=== PATIENT | female | born 1945 | race Caucasian/White ===

== ENCOUNTER 2017-09-06 11:37 | Inpatient (IN) | payer MEDICARE ==
[2017-09-06] MEDS ORDERED: Furosemide 40 MG/4 ML VIAL IVPUSH ONE ×2 (11:47→11:55)
[2017-09-06] MEDS ORDERED: Sodium Chloride 0.9% 10 ML Syringe FLUSH PRN (11:47)
--- NOTE | 2017-09-06 12:11 | EDM.PDOC ---
ED HPI GENERAL MEDICAL PROBLEM - General Chief Complaint: Respiratory Problem Stated Complaint: [facility] Time Seen by Provider: 09/06/17 11:45 Source of Information: Reports: Patient, EMS, Family History Limitations: Reports: Physical Impairment, Respiratory Distress - History of Present Illness INITIAL COMMENTS - FREE TEXT/NARRATIVE: 71-year-old female with a known history of COPD and congestive heart failure is developed significant shortness of breath overnight. She has had moderate shortness of breath over the past several days, and also increasing peripheral edema. EMS was called and found her tripoding at home, acute respiratory distress and unable to speak. This started O2 and gave her a nebulizer in route. Also started CPAP. On arrival her O2 saturations had reached the low 90s on 10 L of O2 with CPAP. She was able to start speaking with a few words. She denies any pain, she refuses intubation. This is a very similar episode to her presentation 2 years ago when she was in acute congestive heart failure. She denies pain. Onset: Sudden (Symptoms developed rather suddenly overnight) Severity: Severe Associated Symptoms: Denies: Fever/Chills Treatments CORE WINDER: Reports: IV/IO, Other (see below) Other Treatments CORE WINDER: Cpap Denies Pain Score (Numeric/FACES): 0 - Related Data Allergies Allergy/AdvReac Type Severity Reaction Status Date / Time No Known Allergies Allergy Verified 09/06/17 12:04 Home Meds: Home Meds Levothyroxine 75 mcg PO DAILY 12/06/13 [History] atorvaSTATin [Lipitor] 20 mg PO BEDTIME 12/06/13 [History] Aspirin [Adult Low Dose Aspirin EC] 81 mg PO DAILY 09/06/17 [History] Budesonide [Pulmicort] 0.5 mg IH BID 09/06/17 [History] Furosemide 1 tab PO DAILY 09/06/17 [History] Ipratropium/Albuterol Sulfate [Iprat-Albut 0.5-3(2.5) mg/3 ml] 3 ml IH QID 09/06 [History] Metoprolol Tartrate 12.5 mg PO BID 09/06/17 [History] Potassium Chloride 20 meq PO DAILY 09/06/17 [History] Past Medical History Respiratory History: Reports: Asthma, COPD, SOB Genitourinary History: Reports: Urinary Incontinence Endocrine/Metabolic History: Reports: Hyperthyroidism Dermatologic History: Reports: Eczema, Other (See Below) Other Dermatologic History: dry skin - itches alot - Infectious Disease History Infectious Disease History: Reports: Chicken Pox, Shingles Social & Family History - Family History Cardiac: Reports: Heart Failure Respiratory: Reports: COPD Endocrine/Metabolic: Reports: Diabetes, type II ED ROS GENERAL - Review of Systems Review Of Systems: See Below Constitutional: Denies: Fever Respiratory: Reports: Shortness of Breath, Cough Cardiovascular: Reports: Edema (Lower extremity edema has been worse recently). Denies: Chest Pain GI/Abdominal: Denies: Nausea, Vomiting Neurological: Denies: Headache ED EXAM, GENERAL - Physical Exam Exam: See Below Exam Limited By: Respiratory Distress General Appearance: Alert, Moderate Distress Eye Exam: Bilateral Eye: EOMI Respiratory/Chest: Respiratory Distress, Decreased Breath Sounds, Rales Cardiovascular: Regular Rate, Rhythm GI/Abdominal: Soft, Non-Tender Extremities: Pedal Edema (Patient has significant 2+ symmetric lower extremity edema) Neurological: Alert Skin Exam: Warm, Dry Course - Vital Signs Last Recorded V/S: Last Vital Signs Temp 98.4 F 09/06/17 15:00 Pulse 107 H 09/06/17 16:00 Resp 17 09/06/17 16:00 BP 88/49 L 09/06/17 16:00 Pulse Ox 91 L 09/06/17 16:00 - Orders/Labs/Meds Orders: Active Orders 24 hr Category Date Time Status Ang Chest [CT] Stat Exams 09/06/17 12:31 Taken Chest 1V Frontal [CR] Stat Exams 09/06/17 11:45 Taken Sodium Chloride 0.9% [Saline Flush] Med 09/06/17 11:47 Active 10 ml FLUSH ASDIRECTED PRN Saline Lock Insert [OM.PC] Routine Oth 09/06/17 11:47 Ordered Medication Orders Acetaminophen (Tylenol) 650 mg PO Q4H PRN PRN Reason: Pain (Mild 1-3)/fever Albuterol (Proventil Neb Soln) 2.5 mg NEB Q4H PRN PRN Reason: Shortness Of Breath/wheezing Albuterol/Ipratropium (Duoneb 3.0-0.5 Mg/3 Ml) 3 ml NEB QIDRT [facility] [place] Last Admin: 09/06/17 14:18 Dose: 3 ml Aspirin (Halfprin) 81 mg PO DAILY [facility] [place] Atorvastatin Calcium (Lipitor) 20 mg PO BEDTIME [facility] [place] Budesonide (Pulmicort) 0.5 mg INH BIDRT [facility] [place] Sodium Chloride (Normal Saline) 100 mls @ 3 mls/sec IV ASDIRECTED [facility] [place] Last Admin: 09/06/17 13:35 Dose: 3 mls/sec Ceftriaxone Sodium 2 gm/ (Sodium Chloride) 50 mls @ 100 mls/hr IV Q24H [facility] [place] Last Admin: 09/06/17 14:16 Dose: 100 mls/hr Levofloxacin/Dextrose 750 mg/ (Premix) 150 mls @ 100 mls/hr IV Q24H [facility] [place] Last Admin: 09/06/17 14:47 Dose: 100 mls/hr Iopamidol (Isovue-370 (76%)) 100 ml IV . DIRECTED [facility] [place] Last Admin: 09/06/17 13:35 Dose: 100 ml Levothyroxine Sodium (Levothyroxine) 75 mcg PO ACBREAKFAST [facility] [place] Lorazepam (Ativan) 0.5 - 1 mg IVPUSH Q4H PRN PRN Reason: Anxiety Magnesium Hydroxide (Milk Of Magnesia) 30 ml PO Q12H PRN PRN Reason: Constipation Metoprolol Tartrate (Lopressor) 12.5 mg PO BID [facility] [place] Morphine Sulfate (Morphine) 2 mg IVPUSH Q2H PRN PRN Reason: Pain (severe 7-10) Ondansetron HCl (Zofran Odt) 4 mg PO Q6H PRN PRN Reason: Nausea able to take PO Ondansetron HCl (Zofran) 4 mg IV Q6H PRN PRN Reason: Nausea/Vomiting Polyethylene Glycol (Miralax) 17 gm PO DAILY PRN PRN Reason: Constipation Senna/Docusate Sodium (Senna Plus) 1 tab PO BID PRN PRN Reason: Constipation Sodium Chloride (Saline Flush) 10 ml FLUSH ASDIRECTED PRN PRN Reason: Keep Vein Open Last Admin: 09/06/17 12:11 Dose: 10 ml Sodium Chloride (Numidia Nasal [place]) 1 ml ROBYN Q2H PRN PRN Reason: Dryness Labs: Laboratory Tests 09/06/17 09/06/17 09/06/17 Range/Units 11:45 11:45 12:00 WBC 11.5 H (4.5-11.0) K/uL RBC 3.99 (3.30-5.50) M/uL Hgb 12.1 (12.0-15.0) g/dL Hct 37.7 (36.0-48.0) % MCV 95 (80-98) fL MCH 30 (27-31) pg MCHC 32 (32-36) % Plt Count 389 (150-400) K/uL Neut % (Auto) 79 H (36-66) % Lymph % (Auto) 13 L (24-44) % [place] % (Auto) 8 H (2-6) % Eos % (Auto) 0 L (2-4) % Baso % (Auto) 0 (0-1) % Puncture Site Lt radial ABG pH 7.500 H (7.350-7.450) ABG pCO2 44.3 H (35.0-42.0) mmHg ABG pO2 46.1 L (75.0-100.0) mmHg ABG HCO3 34.2 H (22.0-26.0) mmol/L ABG Total CO2 30.4 H (21.0-25.0) mmol/L ABG O2 Saturation 82.1 L (95.0-98.0) % ABG O2 Content 13.5 L (15.0-23.0) %vol ABG Base Excess 10.0 mm/L ABG Hemoglobin 12.0 (12.0-16.0) g/dL ABG Oxyhemoglobin 80.0 % ABG Carboxyhemoglobin 2.1 H (0.0-1.6) % ABG Methemoglobin 0.4 % Ken Test Passed O2 Delivery Device Bipap Oxygen Flow Rate 10 L Sodium 130 L (140-148) mmol/L Potassium 4.5 (3.6-5.2) mmol/L Chloride 91 L (100-108) mmol/L Carbon Dioxide 35 H (21-32) mmol/L Anion Gap 8.5 (5.0-14.0) mmol/L BUN 12 (7-18) mg/dL Creatinine 0.6 (0.6-1.0) mg/dL Est Cr Clr Drug Dosing TNP Estimated GFR (MDRD) > 60 (>60) Glucose 129 H (74-106) mg/dL Calcium 8.7 (8.5-10.1) mg/dL Meds: Medications Generic Name Dose Route Start Last Admin Trade Name Freq PRN Reason Stop Dose Admin Acetaminophen 650 mg 09/06/17 13:35 Tylenol PO Q4H PRN Pain (Mild 1-3)/fever Albuterol 2.5 mg 09/06/17 13:35 Proventil Neb Soln NEB Q4H PRN Shortness Of Breath/wheezing Albuterol/Ipratropium 3 ml 09/06/17 15:00 09/06/17 14:18 Duoneb 3.0-0.5 Mg/3 Ml NEB 3 ml QIDRT GURJIT Administration Aspirin 81 mg 09/07/17 09:00 Halfprin PO DAILY GURJIT Atorvastatin Calcium 20 mg 09/06/17 21:00 Lipitor PO BEDTIME GURJIT Budesonide 0.5 mg 09/06/17 21:00 Pulmicort INH BIDRT GURJIT Sodium Chloride 100 mls @ 3 mls/sec 09/06/17 13:00 09/06/17 13:35 Normal Saline IV 3 mls/sec ASDIRECTED GURJIT Administration Ceftriaxone Sodium 2 gm/ 50 mls @ 100 mls/hr 09/06/17 14:00 09/06/17 14:16 Sodium Chloride IV 100 mls/hr Q24H GURJIT Administration Levofloxacin/Dextrose 750 mg/ 150 mls @ 100 mls/hr 09/06/17 15:00 09/06/17 14 :47 Premix IV 100 mls/hr Q24H GURJIT Administration Iopamidol 100 ml 09/06/17 13:00 09/06/17 13:35 Isovue-370 (76%) IV 100 ml . DIRECTED GURJIT Administration Levothyroxine Sodium 75 mcg 09/07/17 07:30 Levothyroxine PO ACBREAKFAST GURJIT Lorazepam 0.5 - 1 mg 09/06/17 13:35 Ativan IVPUSH Q4H PRN Anxiety Magnesium Hydroxide 30 ml 09/06/17 13:35 Milk Of Magnesia PO Q12H PRN Constipation Metoprolol Tartrate 12.5 mg 09/06/17 21:00 Lopressor PO BID GURJIT Morphine Sulfate 2 mg 09/06/17 13:35 Morphine IVPUSH Q2H PRN Pain (severe 7-10) Ondansetron HCl 4 mg 09/06/17 13:35 Zofran Odt PO Q6H PRN Nausea able to take PO Ondansetron HCl 4 mg 09/06/17 13:35 Zofran IV Q6H PRN Nausea/Vomiting Polyethylene Glycol 17 gm 09/06/17 13:35 Miralax PO DAILY PRN Constipation Senna/Docusate Sodium 1 tab 09/06/17 13:35 Senna Plus PO BID PRN Constipation Sodium Chloride 10 ml 09/06/17 11:47 09/06/17 12:11 Saline Flush FLUSH 10 ml ASDIRECTED PRN Administration Keep Vein Open Sodium Chloride 1 ml 09/06/17 13:46 Numidia Nasal [place] ROBYN Q2H PRN Dryness Discontinued Medications Generic Name Dose Route Start Last Admin Trade Name Freq PRN Reason Stop Dose Admin Furosemide 80 mg 09/06/17 11:55 09/06/17 12:06 Lasix IVPUSH 09/06/17 11:56 80 mg ONETIME ONE Administration - Re-Assessments/Exams Free Text/Narrative Re-Assessment/Exam: 09/06/17 12:11 Saline lock was started, patient was given 80 mg of IV Lasix and a portable chest x-ray was obtained. This confirmed cardiomegaly with basilar basilar congestion and pleural effusions. There are also now appears to be a spiculated lesion in the left upper lung. CPAP was continued, RT was called in to initiate BiPAP in the hospitalist service was consulted for admission for acute exacerbation of chronic COPD and CHF. Blood gases returned somewhat reassuring with a pH of 7.50, however O2 saturation was only 82%. Departure - Departure Time of Disposition: 13:37 Disposition: Admitted As Inpatient 66 Condition: Poor Clinical Impression: COPD with exacerbation Congestive heart failure Qualifiers: Heart failure type: unspecified Heart failure chronicity: chronic Qualified Code(s): I50.9 - Heart failure, unspecified - Discharge Information - My Orders Last 24 Hours: My Active Orders 09/06/17 11:45 Chest 1V Frontal [CR] Stat 09/06/17 11:47 Sodium Chloride 0.9% [Saline Flush] 10 ml FLUSH ASDIRECTED PRN Saline Lock Insert [OM.PC] Routine - Assessment/Plan Last 24 Hours: My Active Orders 09/06/17 11:45 Chest 1V Frontal [CR] Stat 09/06/17 11:47 Sodium Chloride 0.9% [Saline Flush] 10 ml FLUSH ASDIRECTED PRN Saline Lock Insert [OM.PC] Routine
--- NOTE | 2017-09-06 12:42 | PCM.HP ---
H&P History of Present Illness - General Date of Service: 09/06/17 Admit Problem/Dx: Admission Diagnosis/Problem Admission Diagnosis/Problem Cor pulmonale Source of Information: Patient, Family, Provider History Limitations: Reports: Respiratory Distress - History of Present Illness Initial Comments - Free Text/Narative: Vanessa presented to the emergency room by ambulance with 3-4 days of progressive shortness of breath and cough. She is currently on noninvasive ventilation and suffering from some respiratory distress so history is gathered partially from her and partially from her . She reports onset of symptoms approximately 4 days ago with steady progression over that time including increasing shortness of breath and increasing cough with green sputum. She is now short of breath even at rest and severely so this morning when she called the ambulance. She doesn't think she's been having fevers or chills. She does not report any chest pain or pleuritic chest pain. No recent difficulties with abdominal pain nausea or diarrhea but she does have some mild constipation. No recent antibiotics or steroids. No sick contacts. She has noticed that her lower legs have suddenly become quite swollen over the past 2 days. She is not have orthopnea. Upon arrival to the emergency room she is in respiratory distress and was quickly started on Cipro Which was transitioned to noninvasive ventilation. She has mild leukocytosis. ABGs show a slight alkalosis with very mild elevation of her PCO2. Chest x-ray suggested pulmonary edema and possible upper lobe mass or infiltrate. CT scan of the chest did not reveal evidence for pulmonary embolism but did show left upper lobe pneumonia and moderately severe centrilobular emphysema. She'll be admitted to the intensive care unit for further management. Denies Pain Score (Numeric/FACES): 0 - Related Data Allergies/Adverse Reactions: Allergies Allergy/AdvReac Type Severity Reaction Status Date / Time No Known Allergies Allergy Verified 09/06/17 12:04 Home Medications: Home Meds Levothyroxine 75 mcg PO DAILY 12/06/13 [History] atorvaSTATin [Lipitor] 20 mg PO BEDTIME 12/06/13 [History] Aspirin [Adult Low Dose Aspirin EC] 81 mg PO DAILY 09/06/17 [History] Budesonide [Pulmicort] 0.5 mg IH BID 09/06/17 [History] Furosemide 1 tab PO DAILY 09/06/17 [History] Ipratropium/Albuterol Sulfate [Iprat-Albut 0.5-3(2.5) mg/3 ml] 3 ml IH QID 09/06 [History] Metoprolol Tartrate 12.5 mg PO BID 09/06/17 [History] Potassium Chloride 20 meq PO DAILY 09/06/17 [History] Past Medical History HEENT History: Reports: Impaired Vision Cardiovascular History: Reports: Heart Failure Respiratory History: Reports: Asthma, COPD, SOB Genitourinary History: Reports: Urinary Incontinence 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: Psychiatric History: Reports: Depression Endocrine/Metabolic History: Reports: Hyperthyroidism Dermatologic History: Reports: Eczema, Other (See Below) Other Dermatologic History: dry skin - itches alot - Infectious Disease History Infectious Disease History: Reports: Chicken Pox, Shingles - Past Surgical History GI Surgical History: Reports: Cholecystectomy Female Surgical History: Reports: Hysterectomy, Oophorectomy, Salpingo- Oophorectomy, Other (See Below) Other Female Surgeries/Procedures: only has l ovary Social & Family History - Family History Cardiac: Reports: Heart Failure Respiratory: Reports: COPD Endocrine/Metabolic: Reports: Diabetes, type II - Tobacco Use Smoking Status *Q: Former Smoker Years of Tobacco use: 50 Packs/Tins Daily: 1 Used Tobacco, but Quit: Yes Month/Year Tobacco Last Used: 2013 Second Hand Smoke Exposure: No - Alcohol Use Alcohol Use History: No - Recreational Drug Use Recreational Drug Use: No H&P Review of Systems - Review of Systems: Review Of Systems: See Below Free Text/Narrative: A complete 12 point review of systems was obtained. Pertinent positives and negatives are noted in the history of present illness. All other systems were reviewed and were negative except as noted. Exam - Exam Exam: See Below - Vital Signs Vital Signs: Last Vital Signs Temp 36.2 C 09/06/17 12:09 Pulse 72 09/06/17 12:09 Resp 22 H 09/06/17 12:09 BP 112/79 09/06/17 12:09 Pulse Ox 72 L 09/06/17 12:09 Weight: 503.488 kg - Exam Quality Assessment: Supplemental Oxygen General: Alert, Oriented, Cooperative, Moderate Distress HEENT: Conjunctiva Clear. No: Mucosa Moist & [place] (dry), Scleral Icterus Neck: Supple, Trachea Midline, JVD. No: Lymphadenopathy Lungs: Decreased Breath Sounds (diffusely ), Crackles (mild at bases). No: Normal Respiratory Effort (increased work of breathing ), Wheezing Cardiovascular: Regular Rhythm, Tachycardia, Systolic Murmur, Gallop/S3 GI/Abdominal Exam: Normal Bowel Sounds, Soft, Non-Tender, No Distention Back Exam: Normal Inspection, Full Range of Motion Extremities: Pedal Edema (pitting edema to the knee bilaterally ), Increased Warmth, Other (both calf muscles ttp ) Peripheral Pulses: 1+: Dorsalis Pedis (L), Dorsalis Pedis (R) Skin: Warm, Dry. No: Rash Neuro Extensive - Mental Status: Alert, Oriented x3, Nl Response to Commands Neuro Extensive - Motor, Sensory, Reflexes: CN II-XII Intact. No: Abnormal Reflexes, Abnormal Motor, Tremor Psychiatric: Alert, Normal Affect - Patient Data Lab Results Last 24 hrs: Laboratory Results - last 24 hr 09/06/17 09/06/17 09/06/17 Range/Units 11:45 11:45 12:00 WBC 11.5 H (4.5-11.0) K/uL RBC 3.99 (3.30-5.50) M/uL Hgb 12.1 (12.0-15.0) g/dL Hct 37.7 (36.0-48.0) % MCV 95 (80-98) fL MCH 30 (27-31) pg MCHC 32 (32-36) % Plt Count 389 (150-400) K/uL Neut % (Auto) 79 H (36-66) % Lymph % (Auto) 13 L (24-44) % [place] % (Auto) 8 H (2-6) % Eos % (Auto) 0 L (2-4) % Baso % (Auto) 0 (0-1) % Puncture Site Lt radial ABG pH 7.500 H (7.350-7.450) ABG pCO2 44.3 H (35.0-42.0) mmHg ABG pO2 46.1 L (75.0-100.0) mmHg ABG HCO3 34.2 H (22.0-26.0) mmol/L ABG Total CO2 30.4 H (21.0-25.0) mmol/L ABG O2 Saturation 82.1 L (95.0-98.0) % ABG O2 Content 13.5 L (15.0-23.0) %vol ABG Base Excess 10.0 mm/L ABG Hemoglobin 12.0 (12.0-16.0) g/dL ABG Oxyhemoglobin 80.0 % ABG Carboxyhemoglobin 2.1 H (0.0-1.6) % ABG Methemoglobin 0.4 % Ken Test Passed O2 Delivery Device Bipap Oxygen Flow Rate 10 L Sodium 130 L (140-148) mmol/L Potassium 4.5 (3.6-5.2) mmol/L Chloride 91 L (100-108) mmol/L Carbon Dioxide 35 H (21-32) mmol/L Anion Gap 8.5 (5.0-14.0) mmol/L BUN 12 (7-18) mg/dL Creatinine 0.6 (0.6-1.0) mg/dL Est Cr Clr Drug Dosing TNP Estimated GFR (MDRD) > 60 (>60) Glucose 129 H (74-106) mg/dL Calcium 8.7 (8.5-10.1) mg/dL Result Diagrams: 09/06/17 11:45 09/06/17 12:00 Imaging Impressions Last 24 hrs: CXR - images personally reviewed - cardiomegally, diffuse bilateral interstitial changes in the bases and pulm vasc congestion. Possible infiltrate versus spiculated mass left upper chest. Bilateral effusions. CT pulmonary angiogram - images personally reviewed - no evidence for pulmonary embolism. Masslike consolidation left upper lobe with air bronchograms most likely pneumonia. Severe emphysema. *Q Meaningful Use (ADM) - VTE Risk Assess *Q Each Risk Factor Represents 1 Point: Swollen Legs, Current, Congestive heart failure (CHF), Serious lung disease including pneumonia, Abnormal Pulmonary Function (COPD) Total Score 1 Point Risk Factors: 4 Each Risk Factor Represents 2 Points: Age 60 - 74 Years Total Score 2 Point Risk Factors: 2 Each Risk Factor Represents 3 Points: None Total Score 3 Point Risk Factors: 0 Each Risk Factor Represents 5 Points: None Total Score 5 Point Risk Factors: 0 Venous Thromboembolism Risk Factor Score *Q: 6 - Problem List (1) Cor pulmonale SNOMED Code(s): 40049406 ICD Code: I27.81 - COR PULMONALE (CHRONIC) Status: Acute Current Visit: Yes (2) Heart failure, diastolic, with acute decompensation SNOMED Code(s): 811226515 ICD Code: I50.33 - ACUTE ON CHRONIC DIASTOLIC (CONGESTIVE) HEART FAILURE Status: Acute Current Visit: Yes (3) Left upper lobe pneumonia SNOMED Code(s): 541793270 ICD Code: J18.1 - LOBAR PNEUMONIA, UNSPECIFIED ORGANISM Status: Acute Current Visit: Yes Qualifiers: Pneumonia type: due to unspecified organism Qualified Code(s): J18.1 - Lobar pneumonia, unspecified organism (4) Lung nodule, solitary SNOMED Code(s): 326263744 ICD Code: R91.1 - SOLITARY PULMONARY NODULE Status: Chronic Current Visit : Yes Problem Details: Right upper lobe Problem List Initiated/Reviewed/Updated: Yes Orders Last 24hrs: Active Orders 24 hr Category Date Time Status Patient Status Manage Transfer [TRANSFER] Routine ADT 09/06/17 12:33 Ordered Ang Chest [CT] Stat Exams 09/06/17 12:31 Ordered Chest 1V Frontal [CR] Stat Exams 09/06/17 11:45 Taken Sodium Chloride 0.9% [Saline Flush] Med 09/06/17 11:47 Active 10 ml FLUSH ASDIRECTED PRN Saline Lock Insert [OM.PC] Routine Oth 09/06/17 11:47 Ordered Resuscitation Status Routine Resus Stat 09/06/17 12:34 Ordered Medication Orders Sodium Chloride (Saline Flush) 10 ml FLUSH ASDIRECTED PRN PRN Reason: Keep Vein Open Last Admin: 09/06/17 12:11 Dose: 10 ml Assessment/Plan Comment:: ASSESSMENT AND PLAN - Cor pulmonale with acute hypoxic respiratory failure - significant pulmonary edema noted on chest x-ray and patient has obvious evidence for congestive heart failure. Bedside ultrasound shows severely dilated and poorly functioning right ventricle and hyperdynamic left ventricle. IVC was dilated and did not collapse. Patient has severe emphysema noted on CAT scan but no evidence for pulmonary embolism. Left upper lobe pneumonia likely contributing. -Patient received 80 mg of furosemide in the emergency room, reassess volume status later this afternoon -Noninvasive ventilation as needed -Newsome catheter -Scheduled and as needed nebulizers Left upper lobe pneumonia - mass versus infiltrate noted on chest x-ray and consolidation with air bronchograms noted on CT scan. She has had recent green sputum along with her progressive shortness of breath but no fevers. -Levofloxacin and ceftriaxone -Additional management as above -Sputum culture if able History of tobacco dependence - quit about 4 years ago. Maintenance issues - - DVT prophylaxis - JUSTINO stockings - GI prophylaxis - not indicated - Nutrition - clear liquids, advance as tolerated - Newsome catheter - placed in the emergency room for strict intake and output monitoring in the setting of severe respiratory compromise CODE STATUS - patient is agreeable to CPR but does not want intubation. Admission justification - This patient will be admitted for inpatient services and is medically appropriate meeting medical necessity for inpatient admission as outlined in my documentation. I reasonably expect the patient will require inpatient services that span a period time over 2 midnights. I reasonably expect this patient to be discharged or transferred within 96 hours after admission to the [facility]. Disposition - anticipate discharge home after the hospital stay Primary care physician - Dr. Augustine Andrade M.D.
[2017-09-06] MEDS ORDERED: Iopamidol 755 Mg/ML 100 ML Bottle IV SCH (13:00)
[2017-09-06] MEDS ORDERED: Sodium Chloride 0.9% 100 ML IV SCH (13:00)
[2017-09-06] MEDS ORDERED: Ondansetron 4 MG Tab.DIS PO PRN (13:35)
[2017-09-06] MEDS ORDERED: Ondansetron 4 MG/2 ML SDV IV PRN (13:35)
[2017-09-06] MEDS ORDERED: Magnesium Hydroxide 400 MG/5 ML Susp 30 ML Cup PO PRN (13:35)
[2017-09-06] MEDS ORDERED: Acetaminophen 325 MG Tab PO PRN (13:35)
[2017-09-06] MEDS ORDERED: Morphine 2 MG/ML Syringe IVPUSH PRN (13:35)
[2017-09-06] MEDS ORDERED: Polyethylene Glycol 3350 Powder 17 GM Packet PO PRN (13:35)
[2017-09-06] MEDS ORDERED: Albuterol 0.083% 2.5 MG/3 ML Neb Soln NEB PRN (13:35)
[2017-09-06] MEDS ORDERED: Sodium Chloride 0.65% Nasal Spray 45 ML Bottle NAS PRN (13:46)
[2017-09-06] MEDS: cefTRIAXone 2 GM in Sodium Chloride 0.9% 50 ML IV SCH (14:16)
[2017-09-06] MEDS: Albuterol/Ipratropium 3.0-0.5 MG/3 ML Neb Soln NEB SCH ×2 (14:18→20:35)
[2017-09-06] MEDS: Levofloxacin/Dextrose 5%-Water 750 MG in Premix Bag 1 BAG IV SCH (14:47)
[2017-09-06] MEDS: Budesonide 0.5 MG/2 ML Neb Susp INH SCH (20:35)
[2017-09-06] MEDS: Metoprolol Tartrate 25 MG Tab PO SCH (21:06)
[2017-09-06] MEDS: atorvaSTATin 20 MG Tab PO SCH (21:06)
[2017-09-06] MEDS ORDERED: Sodium Chloride 0.9% 500 ML IV ONE (22:12)
[2017-09-06] MEDS: LORazepam 2 MG/ML SDV IVPUSH PRN (23:19)
[2017-09-07] MEDS: Albuterol/Ipratropium 3.0-0.5 MG/3 ML Neb Soln NEB SCH ×4 (07:16→20:36)
[2017-09-07] MEDS: Budesonide 0.5 MG/2 ML Neb Susp INH SCH ×2 (07:16→20:36)
[2017-09-07] MEDS: Levothyroxine 75 MCG Tab PO SCH (07:46)
[2017-09-07] MEDS: Aspirin 81 MG Tab.EC PO SCH (08:32)
[2017-09-07] MEDS: Metoprolol Tartrate 25 MG Tab PO SCH ×2 (08:32→20:37)
--- NOTE | 2017-09-07 10:37 | PCM.PN ---
- General Info Date of Service: 09/07/17 Subjective Update: This patient is a 71-year-old woman who was admitted through the emergency department yesterday with COPD exacerbation secondary to pneumonia. She has had significant respiratory compromise and has required ongoing use of noninvasive positive pressure ventilation. She had significant peripheral edema secondary to cor pulmonale and has had a good diuresis thus far. Shortness of breath is improved modestly since admission. - Review of Systems General: Reports: Weakness, Fatigue. Denies: Fever, Chills Pulmonary: Reports: Shortness of Breath, Cough. Denies: Sputum, Hemoptysis, Wheezing Cardiovascular: Reports: Dyspnea on Exertion, Edema. Denies: Chest Pain, Palpitations, Orthopnea, PND, Lightheadedness Gastrointestinal: Reports: No Symptoms - Patient Data Vitals - Most Recent: Last Vital Signs Temp 99 F 09/07/17 07:00 Pulse 117 H 09/07/17 08:32 Resp 22 H 09/07/17 07:00 BP 92/54 L 09/07/17 08:32 Pulse Ox 96 09/07/17 07:00 Weight - Most Recent: 120 lb 6.4 oz I&O - Last 24 Hours: Intake & Output 09/06/17 09/07/17 09/07/17 22:59 06:59 14:59 Intake Total 740 Output Total 1325 175 Balance -585 -175 Lab Results Last 24 Hours: Laboratory Results - last 24 hr 09/06/17 09/06/17 09/06/17 Range/Units 11:45 11:45 12:00 WBC 11.5 H (4.5-11.0) K/uL RBC 3.99 (3.30-5.50) M/uL Hgb 12.1 (12.0-15.0) g/dL Hct 37.7 (36.0-48.0) % MCV 95 (80-98) fL MCH 30 (27-31) pg MCHC 32 (32-36) % Plt Count 389 (150-400) K/uL Neut % (Auto) 79 H (36-66) % Lymph % (Auto) 13 L (24-44) % [place]arrard % (Auto) 8 H (2-6) % Eos % (Auto) 0 L (2-4) % Baso % (Auto) 0 (0-1) % Puncture Site Lt radial ABG pH 7.500 H (7.350-7.450) ABG pCO2 44.3 H (35.0-42.0) mmHg ABG pO2 46.1 L (75.0-100.0) mmHg ABG HCO3 34.2 H (22.0-26.0) mmol/L ABG Total CO2 30.4 H (21.0-25.0) mmol/L ABG O2 Saturation 82.1 L (95.0-98.0) % ABG O2 Content 13.5 L (15.0-23.0) %vol ABG Base Excess 10.0 mm/L ABG Hemoglobin 12.0 (12.0-16.0) g/dL ABG Oxyhemoglobin 80.0 % ABG Carboxyhemoglobin 2.1 H (0.0-1.6) % ABG Methemoglobin 0.4 % Ken Test Passed O2 Delivery Device Bipap Oxygen Flow Rate 10 L Sodium 130 L (140-148) mmol/L Potassium 4.5 (3.6-5.2) mmol/L Chloride 91 L (100-108) mmol/L Carbon Dioxide 35 H (21-32) mmol/L Anion Gap 8.5 (5.0-14.0) mmol/L BUN 12 (7-18) mg/dL Creatinine 0.6 (0.6-1.0) mg/dL Est Cr Clr Drug Dosing TNP Estimated GFR (MDRD) > 60 (>60) Glucose 129 H (74-106) mg/dL Calcium 8.7 (8.5-10.1) mg/dL Magnesium (1.8-2.4) mg/dL C-Reactive Protein (0.0-0.3) mg/dL 09/06/17 09/06/17 09/07/17 Range/Units 13:35 13:46 05:11 WBC 9.5 (4.5-11.0) K/uL RBC 4.02 (3.30-5.50) M/uL Hgb 12.2 (12.0-15.0) g/dL Hct 39.5 (36.0-48.0) % MCV 98 (80-98) fL MCH 30 (27-31) pg MCHC 31 L (32-36) % Plt Count 336 (150-400) K/uL Neut % (Auto) (36-66) % Lymph % (Auto) (24-44) % Garrard % (Auto) (2-6) % Eos % (Auto) (2-4) % Baso % (Auto) (0-1) % Puncture Site ABG pH (7.350-7.450) ABG pCO2 (35.0-42.0) mmHg ABG pO2 (75.0-100.0) mmHg ABG HCO3 (22.0-26.0) mmol/L ABG Total CO2 (21.0-25.0) mmol/L ABG O2 Saturation (95.0-98.0) % ABG O2 Content (15.0-23.0) %vol ABG Base Excess mm/L ABG Hemoglobin (12.0-16.0) g/dL ABG Oxyhemoglobin % ABG Carboxyhemoglobin (0.0-1.6) % ABG Methemoglobin % Ken Test O2 Delivery Device Oxygen Flow Rate L Sodium (140-148) mmol/L Potassium (3.6-5.2) mmol/L Chloride (100-108) mmol/L Carbon Dioxide (21-32) mmol/L Anion Gap (5.0-14.0) mmol/L BUN (7-18) mg/dL Creatinine (0.6-1.0) mg/dL Est Cr Clr Drug Dosing Estimated GFR (MDRD) (>60) Glucose (74-106) mg/dL Calcium (8.5-10.1) mg/dL Magnesium 1.8 (1.8-2.4) mg/dL C-Reactive Protein 2.67 H (0.0-0.3) mg/dL 09/07/17 Range/Units 05:50 WBC (4.5-11.0) K/uL RBC (3.30-5.50) M/uL Hgb (12.0-15.0) g/dL Hct (36.0-48.0) % MCV (80-98) fL MCH (27-31) pg MCHC (32-36) % Plt Count (150-400) K/uL Neut % (Auto) (36-66) % Lymph % (Auto) (24-44) % Garrard % (Auto) (2-6) % Eos % (Auto) (2-4) % Baso % (Auto) (0-1) % Puncture Site ABG pH (7.350-7.450) ABG pCO2 (35.0-42.0) mmHg ABG pO2 (75.0-100.0) mmHg ABG HCO3 (22.0-26.0) mmol/L ABG Total CO2 (21.0-25.0) mmol/L ABG O2 Saturation (95.0-98.0) % ABG O2 Content (15.0-23.0) %vol ABG Base Excess mm/L ABG Hemoglobin (12.0-16.0) g/dL ABG Oxyhemoglobin % ABG Carboxyhemoglobin (0.0-1.6) % ABG Methemoglobin % Ken Test O2 Delivery Device Oxygen Flow Rate L Sodium 140 (140-148) mmol/L Potassium 4.1 (3.6-5.2) mmol/L Chloride 98 L (100-108) mmol/L Carbon Dioxide 43 H (21-32) mmol/L Anion Gap 3.1 L (5.0-14.0) mmol/L BUN 9 (7-18) mg/dL Creatinine 0.7 (0.6-1.0) mg/dL Est Cr Clr Drug Dosing TNP Estimated GFR (MDRD) > 60 (>60) Glucose 75 (74-106) mg/dL Calcium 8.4 L (8.5-10.1) mg/dL Magnesium (1.8-2.4) mg/dL C-Reactive Protein (0.0-0.3) mg/dL Hai Results Last 24 Hours: Microbiology 09/07/17 00:45 Gram Stain - Final Sputum - Expectorated Med Orders - Current: Current Medications Acetaminophen (Tylenol) 650 mg PO Q4H PRN PRN Reason: Pain (Mild 1-3)/fever Albuterol (Proventil Neb Soln) 2.5 mg NEB Q4H PRN PRN Reason: Shortness Of Breath/wheezing Albuterol/Ipratropium (Duoneb 3.0-0.5 Mg/3 Ml) 3 ml NEB QIDRT [facility] Last Admin: 09/07/17 07:16 Dose: 3 ml Aspirin (Halfprin) 81 mg PO DAILY [facility] Last Admin: 09/07/17 08:32 Dose: 81 mg Atorvastatin Calcium (Lipitor) 20 mg PO BEDTIME [facility] Last Admin: 09/06/17 21:06 Dose: 20 mg Budesonide (Pulmicort) 0.5 mg INH BIDRT [facility] Last Admin: 09/07/17 07:16 Dose: 0.5 mg Furosemide (Lasix) 20 mg IVPUSH NOW ONE Stop: 09/07/17 10:33 Ceftriaxone Sodium 2 gm/ (Sodium Chloride) 50 mls @ 100 mls/hr IV Q24H [facility] Last Admin: 09/06/17 14:16 Dose: 100 mls/hr Levofloxacin/Dextrose 750 mg/ (Premix) 150 mls @ 100 mls/hr IV Q24H [facility] Last Admin: 09/06/17 14:47 Dose: 100 mls/hr Iopamidol (Isovue-370 (76%)) 100 ml IV . DIRECTED [facility] Last Admin: 09/06/17 13:35 Dose: 100 ml Levothyroxine Sodium (Levothyroxine) 75 mcg PO ACBREAKFAST [facility] Last Admin: 09/07/17 07:46 Dose: 75 mcg Lorazepam (Ativan) 0.5 - 1 mg IVPUSH Q4H PRN PRN Reason: Anxiety Last Admin: 09/06/17 23:19 Dose: 0.5 mg Magnesium Hydroxide (Milk Of Magnesia) 30 ml PO Q12H PRN PRN Reason: Constipation Metoprolol Tartrate (Lopressor) 12.5 mg PO BID [facility] Last Admin: 09/07/17 08:32 Dose: 12.5 mg Morphine Sulfate (Morphine) 2 mg IVPUSH Q2H PRN PRN Reason: Pain (severe 7-10) Ondansetron HCl (Zofran Odt) 4 mg PO Q6H PRN PRN Reason: Nausea able to take PO Ondansetron HCl (Zofran) 4 mg IV Q6H PRN PRN Reason: Nausea/Vomiting Polyethylene Glycol (Miralax) 17 gm PO DAILY PRN PRN Reason: Constipation Senna/Docusate Sodium (Senna Plus) 1 tab PO BID PRN PRN Reason: Constipation Sodium Chloride (Saline Flush) 10 ml FLUSH ASDIRECTED PRN PRN Reason: Keep Vein Open Last Admin: 09/06/17 12:11 Dose: 10 ml Sodium Chloride (Barren Nasal [place]) 1 ml ROBYN Q2H PRN PRN Reason: Dryness Discontinued Medications Furosemide (Lasix) 80 mg IVPUSH ONETIME ONE Stop: 09/06/17 11:56 Last Admin: 09/06/17 12:06 Dose: 80 mg Sodium Chloride (Normal Saline) 100 mls @ 3 mls/sec IV ASDIRECTED [facility] Last Admin: 09/06/17 13:35 Dose: 3 mls/sec Sodium Chloride (Normal Saline) 500 mls @ 500 mls/hr IV .BOLUS ONE Stop: 09/06/17 23:11 Last Admin: 09/06/17 22:19 Dose: 500 mls/hr - Exam Quality Assessment: Supplemental Oxygen, Urine Catheter, DVT Prophylaxis General: Alert, Oriented, Cooperative, Moderate Distress Lungs: Decreased Breath Sounds. No: Rales, Rhonchi, Rub, Stridor, Wheezing Cardiovascular: Regular Rate, Regular Rhythm, No Murmurs GI/Abdominal Exam: Soft, Non-Tender, No Organomegaly, No Distention Extremities: Non-Tender, Pedal Edema Skin: Warm, Dry, Intact - Problem List Review Problem List Initiated/Reviewed/Updated: Yes - My Orders Last 24 Hours: My Active Orders 09/06/17 12:34 Resuscitation Status Routine 09/07/17 10:32 Remove Newsome Catheter [Urinary Catheter Removal] [RC] Per Unit Routine Furosemide [Lasix] 20 mg IVPUSH NOW ONE 09/07/17 Lunch 2 Gram Sodium Diet [DIET] 09/08/17 05:00 BASIC METABOLIC PANEL,BMP [CHEM] Timed MAGNESIUM [CHEM] Timed - Plan Plan:: ASSESSMENT AND PLAN - Cor pulmonale with acute hypoxic respiratory failure - significant pulmonary edema noted on chest x-ray and patient has obvious evidence for congestive heart failure. Bedside ultrasound shows severely dilated and poorly functioning right ventricle and hyperdynamic left ventricle. IVC was dilated and did not collapse. Patient has severe emphysema noted on CAT scan but no evidence for pulmonary embolism. Left upper lobe pneumonia likely contributing. Modest improvement in shortness of breath since admission, excellent diuresis thus far -Furosemide 80 mg IV now -Noninvasive ventilation as needed -Discontinue Newsome catheter -Scheduled and as needed nebulizers Left upper lobe pneumonia - mass versus infiltrate noted on chest x-ray and consolidation with air bronchograms noted on CT scan. She has had recent green sputum along with her progressive shortness of breath but no fevers. -Levofloxacin and ceftriaxone -Additional management as above -Sputum culture if able History of tobacco dependence - quit about 4 years ago. Maintenance issues - - DVT prophylaxis - JUSTINO stockings - GI prophylaxis - not indicated - Nutrition - clear liquids, advance as tolerated - Newsome catheter - placed in the emergency room for strict intake and output monitoring in the setting of severe respiratory compromise CODE STATUS - patient is agreeable to CPR but does not want intubation. Admission justification - This patient will be admitted for inpatient services and is medically appropriate meeting medical necessity for inpatient admission as outlined in my documentation. I reasonably expect the patient will require inpatient services that span a period time over 2 midnights. I reasonably expect this patient to be discharged or transferred within 96 hours after admission to the Critical [facility]. Disposition - anticipate discharge home after the hospital stay Primary care physician - Dr. Augustine Jensen
[2017-09-07] MEDS ORDERED: Furosemide 20 MG/2 ML VIAL IVPUSH ONE (10:45)
[2017-09-07] MEDS: cefTRIAXone 2 GM in Sodium Chloride 0.9% 50 ML IV SCH (15:11)
[2017-09-07] MEDS: Levofloxacin/Dextrose 5%-Water 750 MG in Premix Bag 1 BAG IV SCH (15:13)
[2017-09-07] MEDS ORDERED: Sodium Chloride 0.9% 250 ML IV SCH (17:45)
[2017-09-07] MEDS ORDERED: Sodium Chloride 0.9% 1,000 ML IV ONE (19:47)
[2017-09-07] MEDS ORDERED: Sodium Chloride 0.9% 1,000 ML IV SCH (20:00)
[2017-09-07] MEDS: atorvaSTATin 20 MG Tab PO SCH (20:36)
[2017-09-07] MEDS: Sodium Chloride 0.9% 1,000 ML IV ONE ×2 (21:00→22:54)
[2017-09-08] MEDS: LORazepam 2 MG/ML SDV IVPUSH PRN (03:34)
[2017-09-08] MEDS: Sodium Chloride 0.9% 1,000 ML IV ONE (06:41)
[2017-09-08] MEDS: Budesonide 0.5 MG/2 ML Neb Susp INH SCH ×2 (07:22→20:39)
[2017-09-08] MEDS: Albuterol/Ipratropium 3.0-0.5 MG/3 ML Neb Soln NEB SCH ×4 (07:22→20:39)
[2017-09-08] MEDS: Levothyroxine 75 MCG Tab PO SCH (08:49)
[2017-09-08] MEDS: Metoprolol Tartrate 25 MG Tab PO SCH (08:49)
[2017-09-08] MEDS: Aspirin 81 MG Tab.EC PO SCH (08:49)
--- NOTE | 2017-09-08 08:57 | CR ---
Findings: Cardiomegaly. Hazy left upper lobe density may indicate pneumonia or asymmetric pulmonary e sonya. Correlate with chest CT to exclude a mass. Linear interstitial densities within both lungs are concerning for interstitial edema as well with trace pleural effusions.
[2017-09-08] MEDS ORDERED: Magnesium Sulfate/Water 2 GM in Premix Bag 1 BAG IV ONE (10:00)
--- NOTE | 2017-09-08 10:33 | PCM.PN ---
- General Info Date of Service: 09/08/17 - Review of Systems General: Reports: Weakness, Fatigue. Denies: Fever, Chills Pulmonary: Reports: Shortness of Breath, Cough. Denies: Pleuritic Chest Pain, Sputum, Hemoptysis, Wheezing Cardiovascular: Reports: Dyspnea on Exertion. Denies: Chest Pain, Palpitations , Orthopnea, PND, Edema Gastrointestinal: Reports: No Symptoms - Patient Data Vitals - Most Recent: Last Vital Signs Temp 98.2 F 09/08/17 08:00 Pulse 117 H 09/08/17 08:49 Resp 22 H 09/08/17 10:00 BP 80/60 L 09/08/17 10:00 Pulse Ox 86 L 09/08/17 10:00 Weight - Most Recent: 120 lb 6.417 oz I&O - Last 24 Hours: Intake & Output 09/07/17 09/08/17 09/08/17 22:59 06:59 14:59 Intake Total 1300 1000 Output Total 150 Balance 1300 850 Lab Results Last 24 Hours: Laboratory Results - last 24 hr 09/08/17 Range/Units 04:45 Sodium 138 L (140-148) mmol/L Potassium 4.0 (3.6-5.2) mmol/L Chloride 99 L (100-108) mmol/L Carbon Dioxide 35 H (21-32) mmol/L Anion Gap 8.0 (5.0-14.0) mmol/L BUN 11 (7-18) mg/dL Creatinine 0.6 (0.6-1.0) mg/dL Est Cr Clr Drug Dosing TNP Estimated GFR (MDRD) > 60 (>60) Glucose 83 (74-106) mg/dL Calcium 8.1 L (8.5-10.1) mg/dL Magnesium 1.7 L (1.8-2.4) mg/dL Hai Results Last 24 Hours: Microbiology 09/07/17 00:45 Gram Stain - Final Sputum - Expectorated Respiratory Culture - Preliminary NORMAL RESPIRATORY JYOTI 1 DAY Med Orders - Current: Current Medications Acetaminophen (Tylenol) 650 mg PO Q4H PRN PRN Reason: Pain (Mild 1-3)/fever Last Admin: 09/08/17 06:40 Dose: 650 mg Albuterol (Proventil Neb Soln) 2.5 mg NEB Q4H PRN PRN Reason: Shortness Of Breath/wheezing Albuterol/Ipratropium (Duoneb 3.0-0.5 Mg/3 Ml) 3 ml NEB QIDRT [facility] Last Admin: 09/08/17 07:22 Dose: 3 ml Aspirin (Halfprin) 81 mg PO DAILY [facility] Last Admin: 09/08/17 08:49 Dose: 81 mg Atorvastatin Calcium (Lipitor) 20 mg PO BEDTIME [facility] Last Admin: 09/07/17 20:36 Dose: 20 mg Budesonide (Pulmicort) 0.5 mg INH BIDRT [facility] Last Admin: 09/08/17 07:22 Dose: 0.5 mg Ceftriaxone Sodium 2 gm/ (Sodium Chloride) 50 mls @ 100 mls/hr IV Q24H [facility] Last Admin: 09/07/17 15:11 Dose: 100 mls/hr Levofloxacin/Dextrose 750 mg/ (Premix) 150 mls @ 100 mls/hr IV Q24H [facility] Last Admin: 09/07/17 15:13 Dose: 100 mls/hr Magnesium Sulfate 2 gm/ Premix 50 mls @ 25 mls/hr IV ONETIME ONE Stop: 09/08/17 11:59 Last Admin: 09/08/17 09:44 Dose: 25 mls/hr Levothyroxine Sodium (Levothyroxine) 75 mcg PO ACBREAKFAST [facility] Last Admin: 09/08/17 08:49 Dose: 75 mcg Lorazepam (Ativan) 0.5 - 1 mg IVPUSH Q4H PRN PRN Reason: Anxiety Last Admin: 09/08/17 03:34 Dose: 0.5 mg Magnesium Hydroxide (Milk Of Magnesia) 30 ml PO Q12H PRN PRN Reason: Constipation Magnesium Oxide (Magnesium Oxide) 400 mg PO BID [facility] Morphine Sulfate (Morphine) 2 mg IVPUSH Q2H PRN PRN Reason: Pain (severe 7-10) Ondansetron HCl (Zofran Odt) 4 mg PO Q6H PRN PRN Reason: Nausea able to take PO Ondansetron HCl (Zofran) 4 mg IV Q6H PRN PRN Reason: Nausea/Vomiting Polyethylene Glycol (Miralax) 17 gm PO DAILY PRN PRN Reason: Constipation Senna/Docusate Sodium (Senna Plus) 1 tab PO BID PRN PRN Reason: Constipation Sodium Chloride (Saline Flush) 10 ml FLUSH ASDIRECTED PRN PRN Reason: Keep Vein Open Last Admin: 09/06/17 12:11 Dose: 10 ml Sodium Chloride (Coffee Nasal [place]) 1 ml ROBYN Q2H PRN PRN Reason: Dryness Discontinued Medications Furosemide (Lasix) 80 mg IVPUSH ONETIME ONE Stop: 09/06/17 11:56 Last Admin: 09/06/17 12:06 Dose: 80 mg Furosemide (Lasix) 20 mg IVPUSH NOW ONE Stop: 09/07/17 10:46 Last Admin: 09/07/17 11:06 Dose: 20 mg Sodium Chloride (Normal Saline) 100 mls @ 3 mls/sec IV ASDIRECTED [facility] Last Admin: 09/06/17 13:35 Dose: 3 mls/sec Sodium Chloride (Normal Saline) 500 mls @ 500 mls/hr IV .BOLUS ONE Stop: 09/06/17 23:11 Last Admin: 09/06/17 22:19 Dose: 500 mls/hr Sodium Chloride (Normal Saline) 250 mls @ 250 mls/hr IV ASDIRECTED [facility] Sodium Chloride (Normal Saline) 500 mls @ 500 mls/hr IV .BOLUS ONE Stop: 09/07/17 20:46 Last Admin: 09/07/17 20:04 Dose: 500 mls/hr Sodium Chloride (Normal Saline) 1,000 mls @ 250 mls/hr IV .BOLUS ONE Stop: 09/08/17 01:09 Last Admin: 09/08/17 06:41 Dose: 125 mls/hr Iopamidol (Isovue-370 (76%)) 100 ml IV . DIRECTED [facility] Last Admin: 09/06/17 13:35 Dose: 100 ml Metoprolol Tartrate (Lopressor) 12.5 mg PO BID [facility] Last Admin: 09/08/17 08:49 Dose: 12.5 mg - Exam Quality Assessment: Supplemental Oxygen, Urine Catheter, DVT Prophylaxis General: Alert, Oriented, Cooperative, Moderate Distress Lungs: Clear to Auscultation, Normal Respiratory Effort, Decreased Breath Sounds. No: Rales, Rhonchi, Rub, Stridor, Wheezing Cardiovascular: Regular Rhythm, No Murmurs, Tachycardia GI/Abdominal Exam: Soft, Non-Tender, No Organomegaly, No Distention Extremities: Non-Tender, Pedal Edema Skin: Warm, Dry, Intact - Problem List Review Problem List Initiated/Reviewed/Updated: Yes - My Orders Last 24 Hours: My Active Orders 09/07/17 Lunch 2 Gram Sodium Diet [DIET] 09/08/17 05:00 Newsome Catheter Insertion [Insert Urinary Catheter] [OM.PC] DAILY 09/08/17 05:45 Urinary Catheter Assessment [RC] Q12H 09/08/17 09:15 Magnesium Oxide 400 mg PO BID 09/08/17 10:00 Magnesium Sulfate/Water [Magnesium Sulfate 2 GM in Water 50 ML] 2 gm Premix Bag 1 bag IV ONETIME 09/08/17 10:29 Chest 1V Frontal [CR] Urgent 09/09/17 05:00 BASIC METABOLIC PANEL,BMP [CHEM] Timed MAGNESIUM [CHEM] Timed - Plan Plan:: ASSESSMENT AND PLAN Cor pulmonale with acute hypoxic respiratory failure - significant pulmonary edema noted on chest x-ray and patient has obvious evidence for congestive heart failure. Bedside ultrasound shows severely dilated and poorly functioning right ventricle and hyperdynamic left ventricle. IVC was dilated and did not collapse. Patient has severe emphysema noted on CAT scan but no evidence for pulmonary embolism. Left upper lobe pneumonia likely contributing. No significant improvement in shortness of breath over the last 24 hours and she actually is become somewhat more hypoxic. Blood pressure has trended low, but has responded to IV fluids. -Solu-Medrol 40 mg IV every 6 hours -Hold furosemide because of hypotension -IV fluids -Noninvasive ventilation as needed -Scheduled and as needed nebulizers Left upper lobe pneumonia - mass versus infiltrate noted on chest x-ray and consolidation with air bronchograms noted on CT scan. She has had recent green sputum along with her progressive shortness of breath but no fevers. -Follow-up chest x-ray -Levofloxacin and ceftriaxone -Additional management as above -Sputum culture if able History of tobacco dependence - quit about 4 years ago. Maintenance issues - - DVT prophylaxis - JUSTINO stockings - GI prophylaxis - not indicated - Nutrition - clear liquids, advance as tolerated - Newsome catheter - placed in the emergency room for strict intake and output monitoring in the setting of severe respiratory compromise CODE STATUS - patient is agreeable to CPR but does not want intubation. Admission justification - This patient will be admitted for inpatient services and is medically appropriate meeting medical necessity for inpatient admission as outlined in my documentation. I reasonably expect the patient will require inpatient services that span a period time over 2 midnights. I reasonably expect this patient to be discharged or transferred within 96 hours after admission to the Critical [facility]. Disposition - anticipate discharge home after the hospital stay Primary care physician - Dr. Augustine Jensen
[2017-09-08] MEDS: Sodium Chloride 0.9% 500 ML IV SCH ×2 (10:45→13:12)
[2017-09-08] MEDS: methylPREDNISolone Sodium Succinate 40 MG/1 ML SDV IVPUSH SCH ×3 (11:16→22:38)
[2017-09-08] MEDS: cefTRIAXone 2 GM in Sodium Chloride 0.9% 50 ML IV SCH (13:35)
[2017-09-08] MEDS: Magnesium Oxide 400 MG Tab PO SCH ×2 (13:35→20:39)
--- NOTE | 2017-09-08 13:58 | CR ---
Heart size is enlarged. Increasing opacification left lung base which can indicate a small left pleur al effusion with atelectasis or infiltrate. Interstitial process is similar which can indicate inters titial edema and redemonstration of a masslike opacity within the left perihilar location.
[2017-09-08] MEDS: Levofloxacin/Dextrose 5%-Water 750 MG in Premix Bag 1 BAG IV SCH (14:24)
--- NOTE | 2017-09-08 14:41 | CR ---
Image obtained for left-sided PICC line. PICC line demonstrates distal tip at the low SVC. Infiltrate s remain. No left-sided pneumothorax.
[2017-09-08] MEDS: Norepinephrine 4 MG in Dextrose 5% in Water 246 ML IV SCH ×2 (15:15)
[2017-09-08] MEDS: atorvaSTATin 20 MG Tab PO SCH (20:39)
[2017-09-08] MEDS: Sodium Chloride 0.9% 1,000 ML IV SCH (22:38)
[2017-09-09] MEDS: methylPREDNISolone Sodium Succinate 40 MG/1 ML SDV IVPUSH SCH ×4 (05:01→22:31)
[2017-09-09] MEDS: Sodium Chloride 0.9% 1,000 ML IV SCH (06:20)
[2017-09-09] MEDS: Albuterol/Ipratropium 3.0-0.5 MG/3 ML Neb Soln NEB SCH ×4 (07:19→20:03)
[2017-09-09] MEDS: Budesonide 0.5 MG/2 ML Neb Susp INH SCH ×2 (07:19→20:05)
[2017-09-09] MEDS: Aspirin 81 MG Tab.EC PO SCH (08:08)
[2017-09-09] MEDS: Levothyroxine 75 MCG Tab PO SCH (08:08)
[2017-09-09] MEDS: Magnesium Oxide 400 MG Tab PO SCH ×2 (08:09→20:02)
[2017-09-09] MEDS ORDERED: Sodium Chloride 0.9% 1,000 ML IV SCH (10:00)
--- NOTE | 2017-09-09 10:05 | PCM.PN ---
- General Info Date of Service: 09/09/17 Subjective Update: This patient continues to experience significant respiratory compromise, requiring ongoing use of noninvasive ventilation. Echocardiogram shows evidence of severe coronary and I'll a with elevated right-sided pressures, normal left ventricular systolic function with evidence of significant diastolic dysfunction. Chest x-ray from yesterday shows evidence of pulmonary edema as well as probable infiltrate consistent with pneumonia. Her pressure is improved with use of norepinephrine, urine output has remained modest. Level of dyspnea unchanged over the last 24 hours. Functional Status: Denies: Tolerating Diet - Review of Systems General: Reports: Weakness. Denies: Fever, Chills Pulmonary: Reports: Shortness of Breath, Cough. Denies: Pleuritic Chest Pain, Sputum, Hemoptysis, Wheezing Cardiovascular: Reports: Dyspnea on Exertion, Edema. Denies: Chest Pain, Palpitations, Orthopnea, PND, Lightheadedness Gastrointestinal: Reports: No Symptoms - Patient Data Vitals - Most Recent: Last Vital Signs Temp 97.9 F 09/09/17 05:00 Pulse 96 09/09/17 09:53 Resp 24 H 09/09/17 09:53 BP 92/64 09/09/17 09:53 Pulse Ox 92 L 09/09/17 09:53 Weight - Most Recent: 120 lb 6.417 oz I&O - Last 24 Hours: Intake & Output 09/08/17 09/09/17 09/09/17 22:59 06:59 14:59 Intake Total 2157 1612 Output Total 100 Balance 2157 1512 Lab Results Last 24 Hours: Laboratory Results - last 24 hr 09/09/17 Range/Units 06:02 Sodium 136 L (140-148) mmol/L Potassium 4.7 (3.6-5.2) mmol/L Chloride 101 (100-108) mmol/L Carbon Dioxide 32 (21-32) mmol/L Anion Gap 7.7 (5.0-14.0) mmol/L BUN 17 D (7-18) mg/dL Creatinine 0.7 (0.6-1.0) mg/dL Est Cr Clr Drug Dosing 56.74 mL/min Estimated GFR (MDRD) > 60 (>60) Glucose 152 H (74-106) mg/dL Calcium 8.2 L (8.5-10.1) mg/dL Magnesium 2.4 D (1.8-2.4) mg/dL Hai Results Last 24 Hours: Microbiology 09/07/17 00:45 Gram Stain - Final Sputum - Expectorated Respiratory Culture - Final NORMAL RESPIRATORY JYOTI 2 DAYS Med Orders - Current: Current Medications Acetaminophen (Tylenol) 650 mg PO Q4H PRN PRN Reason: Pain (Mild 1-3)/fever Last Admin: 09/08/17 06:40 Dose: 650 mg Albuterol (Proventil Neb Soln) 2.5 mg NEB Q4H PRN PRN Reason: Shortness Of Breath/wheezing Albuterol/Ipratropium (Duoneb 3.0-0.5 Mg/3 Ml) 3 ml NEB QIDRT [facility] Last Admin: 09/09/17 07:19 Dose: 3 ml Aspirin (Halfprin) 81 mg PO DAILY [facility] Last Admin: 09/09/17 08:08 Dose: 81 mg Atorvastatin Calcium (Lipitor) 20 mg PO BEDTIME [facility] Last Admin: 09/08/17 20:39 Dose: 20 mg Budesonide (Pulmicort) 0.5 mg INH BIDRT [facility] Last Admin: 09/09/17 07:19 Dose: 0.5 mg Furosemide (Lasix) 20 mg IVPUSH NOW ONE Stop: 09/09/17 09:58 Ceftriaxone Sodium 2 gm/ (Sodium Chloride) 50 mls @ 100 mls/hr IV Q24H [facility] Last Admin: 09/08/17 13:35 Dose: 100 mls/hr Levofloxacin/Dextrose 750 mg/ (Premix) 150 mls @ 100 mls/hr IV Q24H [facility] Last Admin: 09/08/17 14:24 Dose: 100 mls/hr Norepinephrine Bitartrate 4 mg (/ Dextrose/Water) 250 mls @ 7.5 mls/hr IV TITRATE [facility]; Protocol Last Admin: 09/08/17 15:15 Dose: 2 mcg/min, 7.5 mls/hr Sodium Chloride (Normal Saline) 1,000 mls @ 75 mls/hr IV ASDIRECTED [facility] Levothyroxine Sodium (Levothyroxine) 75 mcg PO ACBREAKFAST [facility] Last Admin: 09/09/17 08:08 Dose: 75 mcg Lorazepam (Ativan) 0.5 - 1 mg IVPUSH Q4H PRN PRN Reason: Anxiety Last Admin: 09/08/17 03:34 Dose: 0.5 mg Magnesium Hydroxide (Milk Of Magnesia) 30 ml PO Q12H PRN PRN Reason: Constipation Magnesium Oxide (Magnesium Oxide) 400 mg PO BID [facility] Last Admin: 09/09/17 08:09 Dose: 400 mg Methylprednisolone Sodium Succinate (Solu-Medrol) 40 mg IVPUSH Q6H [facility] Last Admin: 09/09/17 05:01 Dose: 40 mg Morphine Sulfate (Morphine) 2 mg IVPUSH Q2H PRN PRN Reason: Pain (severe 7-10) Ondansetron HCl (Zofran Odt) 4 mg PO Q6H PRN PRN Reason: Nausea able to take PO Ondansetron HCl (Zofran) 4 mg IV Q6H PRN PRN Reason: Nausea/Vomiting Polyethylene Glycol (Miralax) 17 gm PO DAILY PRN PRN Reason: Constipation Senna/Docusate Sodium (Senna Plus) 1 tab PO BID PRN PRN Reason: Constipation Sodium Chloride (Saline Flush) 10 ml FLUSH ASDIRECTED PRN PRN Reason: Keep Vein Open Last Admin: 09/06/17 12:11 Dose: 10 ml Sodium Chloride ([place] Nasal [place]) 1 ml ROBYN Q2H PRN PRN Reason: Dryness Discontinued Medications Furosemide (Lasix) 80 mg IVPUSH ONETIME ONE Stop: 09/06/17 11:56 Last Admin: 09/06/17 12:06 Dose: 80 mg Furosemide (Lasix) 20 mg IVPUSH NOW ONE Stop: 09/07/17 10:46 Last Admin: 09/07/17 11:06 Dose: 20 mg Sodium Chloride (Normal Saline) 100 mls @ 3 mls/sec IV ASDIRECTED [facility] Last Admin: 09/06/17 13:35 Dose: 3 mls/sec Sodium Chloride (Normal Saline) 500 mls @ 500 mls/hr IV .BOLUS ONE Stop: 09/06/17 23:11 Last Admin: 09/06/17 22:19 Dose: 500 mls/hr Sodium Chloride (Normal Saline) 250 mls @ 250 mls/hr IV ASDIRECTED [facility] Sodium Chloride (Normal Saline) 500 mls @ 500 mls/hr IV .BOLUS ONE Stop: 09/07/17 20:46 Last Admin: 09/07/17 20:04 Dose: 500 mls/hr Sodium Chloride (Normal Saline) 1,000 mls @ 250 mls/hr IV .BOLUS ONE Stop: 09/08/17 01:09 Last Admin: 09/08/17 06:41 Dose: 125 mls/hr Magnesium Sulfate 2 gm/ Premix 50 mls @ 25 mls/hr IV ONETIME ONE Stop: 09/08/17 11:59 Last Admin: 09/08/17 09:44 Dose: 25 mls/hr Sodium Chloride (Normal Saline) 500 mls @ 250 mls/hr IV ASDIRECTED [facility] Last Infusion: 09/08/17 12:45 Dose: Infused Sodium Chloride (Normal Saline) 1,000 mls @ 125 mls/hr IV ASDIRECTED [facility] Last Admin: 09/09/17 06:20 Dose: 125 mls/hr Iopamidol (Isovue-370 (76%)) 100 ml IV . DIRECTED [facility] Last Admin: 09/06/17 13:35 Dose: 100 ml Metoprolol Tartrate (Lopressor) 12.5 mg PO BID [facility] Last Admin: 09/08/17 08:49 Dose: 12.5 mg - Exam Quality Assessment: Supplemental Oxygen, Central Line/PICC, Urine Catheter, DVT Prophylaxis General: Alert, Oriented, Cooperative, Moderate Distress Lungs: Decreased Breath Sounds, Rhonchi, Wheezing. No: Rales, Rub Cardiovascular: Regular Rate, Regular Rhythm, No Murmurs GI/Abdominal Exam: Soft, Non-Tender, No Organomegaly, No Distention Extremities: Non-Tender, Pedal Edema Skin: Warm, Dry - Problem List Review Problem List Initiated/Reviewed/Updated: Yes - My Orders Last 24 Hours: My Active Orders 09/08/17 09:15 Magnesium Oxide 400 mg PO BID 09/08/17 11:00 methylPREDNISolone Sod Succ [Solu-MEDROL] 40 mg IVPUSH Q6H 09/08/17 13:14 Consult to PICC Team [CONS] Routine Central Venous Line Insertion [OM.PC] Routine 09/08/17 13:15 Norepinephrine [Levophed] 4 mg Dextrose 5% in Water 246 ml IV TITRATE 09/09/17 08:00 Echo Comp wo Cont [US] Stat 09/09/17 09:57 Furosemide [Lasix] 20 mg IVPUSH NOW ONE 09/09/17 10:00 Sodium Chloride 0.9% @ 75 MLS/HR(1000ml) Sodium Chloride 0.9% [Normal Saline] 1 ,000 ml IV ASDIRECTED 09/10/17 05:00 BASIC METABOLIC PANEL,BMP [CHEM] Timed - Plan Plan:: ASSESSMENT AND PLAN Cor pulmonale with acute hypoxic respiratory failure - continued hypoxic respiratory failure, complicated by hypotension. Echocardiogram obtained this morning, preliminary report shows evidence of cor pulmonale with severe only very hypertension as well as significant diastolic left ventricular failure. Blood pressure has improved with use of low-dose norepinephrine, urine output has remained modest. -And tinea use of low-dose norepinephrine to maintain mean arterial pressure of greater than 65 -Solu-Medrol 40 mg IV every 6 hours -Furosemide 20 mg IV today -IV fluids -Noninvasive ventilation as needed -Scheduled and as needed nebulizers Diastolic congestive heart failure -And a judgment as above Left upper lobe pneumonia - mass versus infiltrate noted on chest x-ray and consolidation with air bronchograms noted on CT scan. She has had recent green sputum along with her progressive shortness of breath but no fevers. -Follow-up chest x-ray -Levofloxacin and ceftriaxone -Additional management as above -Sputum culture if able History of tobacco dependence - quit about 4 years ago. Maintenance issues - - DVT prophylaxis - JUSTINO stockings - GI prophylaxis - not indicated - Nutrition - clear liquids, advance as tolerated - Newsome catheter - placed in the emergency room for strict intake and output monitoring in the setting of severe respiratory compromise CODE STATUS - patient is agreeable to CPR but does not want intubation. Admission justification - This patient will be admitted for inpatient services and is medically appropriate meeting medical necessity for inpatient admission as outlined in my documentation. I reasonably expect the patient will require inpatient services that span a period time over 2 midnights. I reasonably expect this patient to be discharged or transferred within 96 hours after admission to the [facility]. Disposition - anticipate discharge home after the hospital stay Primary care physician - Dr. Augustine Jensen
[2017-09-09] MEDS ORDERED: Furosemide 20 MG/2 ML VIAL IV ONE (10:15)
[2017-09-09] MEDS: cefTRIAXone 2 GM in Sodium Chloride 0.9% 50 ML IV SCH (13:43)
[2017-09-09] MEDS: Levofloxacin/Dextrose 5%-Water 750 MG in Premix Bag 1 BAG IV SCH (14:54)
[2017-09-09] MEDS: Norepinephrine 4 MG in Dextrose 5% in Water 246 ML IV SCH ×2 (17:19)
[2017-09-09] MEDS: atorvaSTATin 20 MG Tab PO SCH (20:02)
[2017-09-10] MEDS: methylPREDNISolone Sodium Succinate 40 MG/1 ML SDV IVPUSH SCH ×4 (04:17→23:35)
[2017-09-10] MEDS: Budesonide 0.5 MG/2 ML Neb Susp INH SCH ×2 (07:23→20:27)
[2017-09-10] MEDS: Albuterol/Ipratropium 3.0-0.5 MG/3 ML Neb Soln NEB SCH ×4 (07:23→20:27)
[2017-09-10] MEDS: Levothyroxine 75 MCG Tab PO SCH (08:09)
[2017-09-10] MEDS: Aspirin 81 MG Tab.EC PO SCH (08:09)
[2017-09-10] MEDS: Magnesium Oxide 400 MG Tab PO SCH ×2 (08:10→20:04)
[2017-09-10] MEDS: LORazepam 2 MG/ML SDV IVPUSH PRN (08:12)
--- NOTE | 2017-09-10 09:04 | PCM.PN ---
- General Info Date of Service: 09/10/17 Subjective Update: This patient has unfortunately not shown significant improvement over last 24 hours and actually is somewhat worse with increased heart rate and increased respiratory rate. She currently has received some sedation for comfort, respiratory rate has climbed to the low 30s and saturations have been in the mid 80s. - Review of Systems General: Reports: Weakness. Denies: Fever, Chills Pulmonary: Reports: Shortness of Breath. Denies: Pleuritic Chest Pain, Cough, Sputum, Hemoptysis, Wheezing Cardiovascular: Reports: Dyspnea on Exertion, Edema. Denies: Chest Pain, Palpitations, Orthopnea, PND Gastrointestinal: Reports: No Symptoms - Patient Data Vitals - Most Recent: Last Vital Signs Temp 97.5 F 09/10/17 07:00 Pulse 115 H 09/10/17 08:55 Resp 24 H 09/10/17 08:55 BP 102/60 09/10/17 08:55 Pulse Ox 90 L 09/10/17 08:55 Weight - Most Recent: 120 lb 6.417 oz I&O - Last 24 Hours: Intake & Output 09/09/17 09/10/17 09/10/17 22:59 06:59 14:59 Intake Total 1625 1001 Output Total 800 325 Balance 825 676 Lab Results Last 24 Hours: Laboratory Results - last 24 hr 09/10/17 Range/Units 05:11 Sodium 137 L (140-148) mmol/L Potassium 4.5 (3.6-5.2) mmol/L Chloride 101 (100-108) mmol/L Carbon Dioxide 36 H (21-32) mmol/L Anion Gap 4.5 L (5.0-14.0) mmol/L BUN 15 (7-18) mg/dL Creatinine 0.6 (0.6-1.0) mg/dL Est Cr Clr Drug Dosing 66.20 mL/min Estimated GFR (MDRD) > 60 (>60) Glucose 146 H (74-106) mg/dL Calcium 8.0 L (8.5-10.1) mg/dL Hai Results Last 24 Hours: Microbiology 09/07/17 00:45 Gram Stain - Final Sputum - Expectorated Respiratory Culture - Final NORMAL RESPIRATORY JYOTI 2 DAYS Med Orders - Current: Current Medications Acetaminophen (Tylenol) 650 mg PO Q4H PRN PRN Reason: Pain (Mild 1-3)/fever Last Admin: 09/08/17 06:40 Dose: 650 mg Albuterol (Proventil Neb Soln) 2.5 mg NEB Q4H PRN PRN Reason: Shortness Of Breath/wheezing Albuterol/Ipratropium (Duoneb 3.0-0.5 Mg/3 Ml) 3 ml NEB QIDRT [facility] Last Admin: 09/10/17 07:23 Dose: 3 ml Aspirin (Halfprin) 81 mg PO DAILY [facility] Last Admin: 09/10/17 08:09 Dose: 81 mg Atorvastatin Calcium (Lipitor) 20 mg PO BEDTIME [facility] Last Admin: 09/09/17 20:02 Dose: 20 mg Budesonide (Pulmicort) 0.5 mg INH BIDRT [facility] Last Admin: 09/10/17 07:23 Dose: 0.5 mg Furosemide (Lasix) 20 mg IVPUSH Q8H [facility] Ceftriaxone Sodium 2 gm/ (Sodium Chloride) 50 mls @ 100 mls/hr IV Q24H [facility] Last Admin: 09/09/17 13:43 Dose: 100 mls/hr Levofloxacin/Dextrose 750 mg/ (Premix) 150 mls @ 100 mls/hr IV Q24H [facility] Last Admin: 09/09/17 14:54 Dose: 100 mls/hr Norepinephrine Bitartrate 4 mg (/ Dextrose/Water) 250 mls @ 7.5 mls/hr IV TITRATE [facility]; Protocol Last Admin: 09/09/17 17:19 Dose: 2 mcg/min, 7.5 mls/hr Levothyroxine Sodium (Levothyroxine) 75 mcg PO ACBREAKFAST [facility] Last Admin: 09/10/17 08:09 Dose: 75 mcg Lorazepam (Ativan) 0.5 - 1 mg IVPUSH Q4H PRN PRN Reason: Anxiety Last Admin: 09/10/17 08:12 Dose: 1 mg Magnesium Hydroxide (Milk Of Magnesia) 30 ml PO Q12H PRN PRN Reason: Constipation Magnesium Oxide (Magnesium Oxide) 400 mg PO BID [facility] Last Admin: 09/10/17 08:10 Dose: 400 mg Methylprednisolone Sodium Succinate (Solu-Medrol) 40 mg IVPUSH Q6H [facility] Last Admin: 09/10/17 04:17 Dose: 40 mg Morphine Sulfate (Morphine) 2 mg IVPUSH Q2H PRN PRN Reason: Pain (severe 7-10) Ondansetron HCl (Zofran Odt) 4 mg PO Q6H PRN PRN Reason: Nausea able to take PO Ondansetron HCl (Zofran) 4 mg IV Q6H PRN PRN Reason: Nausea/Vomiting Polyethylene Glycol (Miralax) 17 gm PO DAILY PRN PRN Reason: Constipation Senna/Docusate Sodium (Senna Plus) 1 tab PO BID PRN PRN Reason: Constipation Sodium Chloride (Saline Flush) 10 ml FLUSH ASDIRECTED PRN PRN Reason: Keep Vein Open Last Admin: 09/06/17 12:11 Dose: 10 ml Sodium Chloride ([place] Nasal [place]) 1 ml ROBYN Q2H PRN PRN Reason: Dryness Discontinued Medications Furosemide (Lasix) 80 mg IVPUSH ONETIME ONE Stop: 09/06/17 11:56 Last Admin: 09/06/17 12:06 Dose: 80 mg Furosemide (Lasix) 20 mg IVPUSH NOW ONE Stop: 09/07/17 10:46 Last Admin: 09/07/17 11:06 Dose: 20 mg Furosemide (Lasix) 20 mg IV ONETIME ONE Stop: 09/09/17 10:16 Last Admin: 09/09/17 10:24 Dose: 20 mg Sodium Chloride (Normal Saline) 100 mls @ 3 mls/sec IV ASDIRECTED [facility] Last Admin: 09/06/17 13:35 Dose: 3 mls/sec Sodium Chloride (Normal Saline) 500 mls @ 500 mls/hr IV .BOLUS ONE Stop: 09/06/17 23:11 Last Admin: 09/06/17 22:19 Dose: 500 mls/hr Sodium Chloride (Normal Saline) 250 mls @ 250 mls/hr IV ASDIRECTED [facility] Sodium Chloride (Normal Saline) 500 mls @ 500 mls/hr IV .BOLUS ONE Stop: 09/07/17 20:46 Last Admin: 09/07/17 20:04 Dose: 500 mls/hr Sodium Chloride (Normal Saline) 1,000 mls @ 250 mls/hr IV .BOLUS ONE Stop: 09/08/17 01:09 Last Admin: 09/08/17 06:41 Dose: 125 mls/hr Magnesium Sulfate 2 gm/ Premix 50 mls @ 25 mls/hr IV ONETIME ONE Stop: 09/08/17 11:59 Last Admin: 09/08/17 09:44 Dose: 25 mls/hr Sodium Chloride (Normal Saline) 500 mls @ 250 mls/hr IV ASDIRECTED [facility] Last Infusion: 09/08/17 12:45 Dose: Infused Sodium Chloride (Normal Saline) 1,000 mls @ 125 mls/hr IV ASDIRECTED [facility] Last Admin: 09/09/17 06:20 Dose: 125 mls/hr Sodium Chloride (Normal Saline) 1,000 mls @ 75 mls/hr IV ASDIRECTED [facility] Last Admin: 09/09/17 18:48 Dose: 75 mls/hr Iopamidol (Isovue-370 (76%)) 100 ml IV . DIRECTED [facility] Last Admin: 09/06/17 13:35 Dose: 100 ml Metoprolol Tartrate (Lopressor) 12.5 mg PO BID [facility] Last Admin: 09/08/17 08:49 Dose: 12.5 mg - Exam Quality Assessment: Supplemental Oxygen, Central Line/PICC, Urine Catheter, DVT Prophylaxis General: Cooperative, Sedated Lungs: Decreased Breath Sounds, Rales, Rhonchi. No: Wheezing Cardiovascular: Regular Rhythm, Tachycardia, Murmurs GI/Abdominal Exam: Soft, Non-Tender, No Organomegaly, No Distention Extremities: Non-Tender, Pedal Edema Skin: Warm, Dry, Intact - Problem List Review Problem List Initiated/Reviewed/Updated: Yes - My Orders Last 24 Hours: My Active Orders 09/10/17 08:30 Furosemide [Lasix] 20 mg IVPUSH Q8H 09/10/17 08:57 Convert IV to Saline Lock [OM.PC] Routine 09/11/17 05:00 BASIC METABOLIC PANEL,BMP [CHEM] Timed CBC WITH AUTO DIFF [HEME] Timed - Plan Plan:: ASSESSMENT AND PLAN Cor pulmonale with acute hypoxic respiratory failure - continued hypoxic respiratory failure, complicated by hypotension. Echocardiogram preliminary report shows evidence of cor pulmonale with severe pulmonary hypertension as well as significant diastolic left ventricular failure. Blood pressures been better but respiratory status has declined over the last 24 hours -Solu-Medrol 40 mg IV every 6 hours -Furosemide 20 mg IV today -IV fluids -Noninvasive ventilation as needed -Scheduled and as needed nebulizers Diastolic congestive heart failure -And a judgment as above Left upper lobe pneumonia - mass versus infiltrate noted on chest x-ray and consolidation with air bronchograms noted on CT scan. She has had recent green sputum along with her progressive shortness of breath but no fevers. -Follow-up chest x-ray -Levofloxacin and ceftriaxone -Additional management as above -Sputum culture if able History of tobacco dependence - quit about 4 years ago Palliative care-she does not want to consider further aggressive interventions Maintenance issues - - DVT prophylaxis - JUSTION stockings - GI prophylaxis - not indicated - Nutrition - clear liquids, advance as tolerated - Newsome catheter - placed in the emergency room for strict intake and output monitoring in the setting of severe respiratory compromise CODE STATUS - patient is agreeable to CPR but does not want intubation. Admission justification - This patient will be admitted for inpatient services and is medically appropriate meeting medical necessity for inpatient admission as outlined in my documentation. I reasonably expect the patient will require inpatient services that span a period time over 2 midnights. I reasonably expect this patient to be discharged or transferred within 96 hours [facility] Disposition - anticipate discharge home after the hospital stay Primary care physician - Dr. Augustine Jensen
[2017-09-10] MEDS: Furosemide 20 MG/2 ML VIAL IVPUSH SCH ×3 (09:20→23:39)
[2017-09-10] MEDS ORDERED: LORazepam 2 MG/ML SDV IVPUSH PRN (12:29)
--- NOTE | 2017-09-10 12:31 | PCM.SN ---
- Free Text/Narrative Note: Patient is more alert and interactive this afternoon, I was able to have her conversation with her concerning her wishes for ongoing care and management. Her shortness of breath and symptoms have progressed over the past several months to the point where she was extremely short of breath at home. Interventions here been unsuccessful in improving her respiratory status. I explained to her that this is likely secondary to her severe underlying pulmonary disease as well as cardiac disease. CT scan all show shows possible mass consistent with malignancy. Given the circumstances she would like to proceed with comfort care but would like to continue the BiPAP at the present time. Lorazepam is already ordered, frequency will be decreased and we will use morphine also as needed for comfort.
[2017-09-10] MEDS: Morphine 2 MG/ML Syringe IVPUSH PRN (13:15)
[2017-09-10] MEDS: cefTRIAXone 2 GM in Sodium Chloride 0.9% 50 ML IV SCH (14:20)
[2017-09-10] MEDS: Levofloxacin/Dextrose 5%-Water 750 MG in Premix Bag 1 BAG IV SCH (16:00)
[2017-09-10] MEDS: atorvaSTATin 20 MG Tab PO SCH (20:04)
[2017-09-11] MEDS: Morphine 2 MG/ML Syringe IVPUSH PRN ×2 (01:05→07:34)
[2017-09-11] MEDS: methylPREDNISolone Sodium Succinate 40 MG/1 ML SDV IVPUSH SCH (05:02)
[2017-09-11] MEDS: Norepinephrine 4 MG in Dextrose 5% in Water 246 ML IV SCH ×2 (05:51)
[2017-09-11] MEDS: Budesonide 0.5 MG/2 ML Neb Susp INH SCH (07:05)
[2017-09-11] MEDS: Albuterol/Ipratropium 3.0-0.5 MG/3 ML Neb Soln NEB SCH ×2 (07:05→10:54)
[2017-09-11] MEDS: Levothyroxine 75 MCG Tab PO SCH (07:33)
[2017-09-11] MEDS: Furosemide 20 MG/2 ML VIAL IVPUSH SCH (08:40)
[2017-09-11] MEDS: Magnesium Oxide 400 MG Tab PO SCH (08:41)
[2017-09-11] MEDS: Aspirin 81 MG Tab.EC PO SCH (08:41)
--- NOTE | 2017-09-11 09:08 | PCM.PN ---
- General Info Date of Service: 09/11/17 Subjective Update: Despite interventions this patient has unfortunately failed to improve and has progressively worsened. Over the last 24 hours is become more hypoxic and hypotensive. Discussion was held with her yesterday and this time she wants to proceed with comfort cares and not pursue any further aggressive interventions. She would like to stay on the BiPAP for comfort reasons. Functional Status: Reports: Pain Controlled - Review of Systems General: Reports: Weakness. Denies: Fever, Chills Pulmonary: Reports: Shortness of Breath. Denies: Pleuritic Chest Pain, Cough, Sputum, Hemoptysis, Wheezing Cardiovascular: Reports: Dyspnea on Exertion, Edema. Denies: Chest Pain, Palpitations, Orthopnea, PND Gastrointestinal: Reports: No Symptoms - Patient Data Vitals - Most Recent: Last Vital Signs Temp 98.8 F 09/11/17 08:00 Pulse 109 H 09/11/17 08:00 Resp 22 H 09/11/17 08:00 BP 80/54 L 09/11/17 08:00 Pulse Ox 80 L 09/11/17 08:00 Weight - Most Recent: 120 lb 6.417 oz I&O - Last 24 Hours: Intake & Output 09/10/17 09/11/17 09/11/17 22:59 06:59 14:59 Intake Total 930 260 Output Total 20 75 Balance 910 185 Lab Results Last 24 Hours: Laboratory Results - last 24 hr 09/11/17 09/11/17 Range/Units 05:00 05:00 WBC 15.3 H (4.5-11.0) K/uL RBC 4.09 (3.30-5.50) M/uL Hgb 12.7 (12.0-15.0) g/dL Hct 40.9 (36.0-48.0) % MCV 100 H (80-98) fL MCH 31 (27-31) pg MCHC 31 L (32-36) % Plt Count 219 (150-400) K/uL Neut % (Auto) 93 H (36-66) % Lymph % (Auto) 2 L (24-44) % Hardy % (Auto) 5 (2-6) % Eos % (Auto) 0 L (2-4) % Baso % (Auto) 0 (0-1) % Sodium 135 L (140-148) mmol/L Potassium 5.3 H (3.6-5.2) mmol/L Chloride 99 L (100-108) mmol/L Carbon Dioxide 32 (21-32) mmol/L Anion Gap 9.3 (5.0-14.0) mmol/L BUN 30 H D (7-18) mg/dL Creatinine 1.2 H D (0.6-1.0) mg/dL Est Cr Clr Drug Dosing 33.10 mL/min Estimated GFR (MDRD) 44 L (>60) Glucose 185 H (74-106) mg/dL Calcium 8.2 L (8.5-10.1) mg/dL Med Orders - Current: Current Medications Acetaminophen (Tylenol) 650 mg PO Q4H PRN PRN Reason: Pain (Mild 1-3)/fever Last Admin: 09/08/17 06:40 Dose: 650 mg Albuterol (Proventil Neb Soln) 2.5 mg NEB Q4H PRN PRN Reason: Shortness Of Breath/wheezing Last Admin: 09/11/17 01:44 Dose: 2.5 mg Albuterol/Ipratropium (Duoneb 3.0-0.5 Mg/3 Ml) 3 ml NEB QIDRT [facility] Last Admin: 09/11/17 07:05 Dose: 3 ml Aspirin (Halfprin) 81 mg PO DAILY [facility] Last Admin: 09/11/17 08:41 Dose: 81 mg Atorvastatin Calcium (Lipitor) 20 mg PO BEDTIME [facility] Last Admin: 09/10/17 20:04 Dose: Not Given Budesonide (Pulmicort) 0.5 mg INH BIDRT [facility] Last Admin: 09/11/17 07:05 Dose: 0.5 mg Furosemide (Lasix) 20 mg IVPUSH Q8H [facility] Last Admin: 09/11/17 08:40 Dose: 20 mg Levothyroxine Sodium (Levothyroxine) 75 mcg PO ACBREAKFAST [facility] Last Admin: 09/11/17 07:33 Dose: 75 mcg Lorazepam (Ativan) 0.5 - 1 mg IVPUSH Q2H PRN PRN Reason: Anxiety Magnesium Hydroxide (Milk Of Magnesia) 30 ml PO Q12H PRN PRN Reason: Constipation Magnesium Oxide (Magnesium Oxide) 400 mg PO BID [facility] Last Admin: 09/11/17 08:41 Dose: 400 mg Morphine Sulfate (Morphine) 2 mg IVPUSH Q30M PRN PRN Reason: Dyspnea Last Admin: 09/11/17 07:34 Dose: 2 mg Ondansetron HCl (Zofran Odt) 4 mg PO Q6H PRN PRN Reason: Nausea able to take PO Ondansetron HCl (Zofran) 4 mg IV Q6H PRN PRN Reason: Nausea/Vomiting Polyethylene Glycol (Miralax) 17 gm PO DAILY PRN PRN Reason: Constipation Senna/Docusate Sodium (Senna Plus) 1 tab PO BID PRN PRN Reason: Constipation Sodium Chloride (Saline Flush) 10 ml FLUSH ASDIRECTED PRN PRN Reason: Keep Vein Open Last Admin: 09/06/17 12:11 Dose: 10 ml Sodium Chloride ([place] Nasal [place]) 1 ml ROBYN Q2H PRN PRN Reason: Dryness Discontinued Medications Furosemide (Lasix) 80 mg IVPUSH ONETIME ONE Stop: 09/06/17 11:56 Last Admin: 09/06/17 12:06 Dose: 80 mg Furosemide (Lasix) 20 mg IVPUSH NOW ONE Stop: 09/07/17 10:46 Last Admin: 09/07/17 11:06 Dose: 20 mg Furosemide (Lasix) 20 mg IV ONETIME ONE Stop: 09/09/17 10:16 Last Admin: 09/09/17 10:24 Dose: 20 mg Sodium Chloride (Normal Saline) 100 mls @ 3 mls/sec IV ASDIRECTED [facility] Last Admin: 09/06/17 13:35 Dose: 3 mls/sec Ceftriaxone Sodium 2 gm/ (Sodium Chloride) 50 mls @ 100 mls/hr IV Q24H [facility] Last Admin: 09/10/17 14:20 Dose: 100 mls/hr Levofloxacin/Dextrose 750 mg/ (Premix) 150 mls @ 100 mls/hr IV Q24H [facility] Last Admin: 09/10/17 16:00 Dose: 100 mls/hr Sodium Chloride (Normal Saline) 500 mls @ 500 mls/hr IV .BOLUS ONE Stop: 09/06/17 23:11 Last Admin: 09/06/17 22:19 Dose: 500 mls/hr Sodium Chloride (Normal Saline) 250 mls @ 250 mls/hr IV ASDIRECTED [facility] Sodium Chloride (Normal Saline) 500 mls @ 500 mls/hr IV .BOLUS ONE Stop: 09/07/17 20:46 Last Admin: 09/07/17 20:04 Dose: 500 mls/hr Sodium Chloride (Normal Saline) 1,000 mls @ 250 mls/hr IV .BOLUS ONE Stop: 09/08/17 01:09 Last Admin: 09/08/17 06:41 Dose: 125 mls/hr Magnesium Sulfate 2 gm/ Premix 50 mls @ 25 mls/hr IV ONETIME ONE Stop: 09/08/17 11:59 Last Admin: 09/08/17 09:44 Dose: 25 mls/hr Sodium Chloride (Normal Saline) 500 mls @ 250 mls/hr IV ASDIRECTED [facility] Last Infusion: 09/08/17 12:45 Dose: Infused Norepinephrine Bitartrate 4 mg (/ Dextrose/Water) 250 mls @ 7.5 mls/hr IV TITRATE [facility]; Protocol Last Admin: 09/11/17 05:51 Dose: 6 mcg/min, 22.5 mls/hr Sodium Chloride (Normal Saline) 1,000 mls @ 125 mls/hr IV ASDIRECTED [facility] Last Admin: 09/09/17 06:20 Dose: 125 mls/hr Sodium Chloride (Normal Saline) 1,000 mls @ 75 mls/hr IV ASDIRECTED [facility] Last Admin: 09/09/17 18:48 Dose: 75 mls/hr Iopamidol (Isovue-370 (76%)) 100 ml IV . DIRECTED [facility] Last Admin: 09/06/17 13:35 Dose: 100 ml Lorazepam (Ativan) 0.5 - 1 mg IVPUSH Q4H PRN PRN Reason: Anxiety Last Admin: 09/10/17 08:12 Dose: 1 mg Methylprednisolone Sodium Succinate (Solu-Medrol) 40 mg IVPUSH Q6H [facility] Last Admin: 09/11/17 05:02 Dose: 40 mg Metoprolol Tartrate (Lopressor) 12.5 mg PO BID [facility] Last Admin: 09/08/17 08:49 Dose: 12.5 mg Morphine Sulfate (Morphine) 2 mg IVPUSH Q2H PRN PRN Reason: Pain (severe 7-10) Last Admin: 09/10/17 18:56 Dose: 2 mg - Exam Quality Assessment: Supplemental Oxygen, Central Line/PICC, Urine Catheter, DVT Prophylaxis General: Moderate Distress, Sedated Lungs: Decreased Breath Sounds. No: Rales, Rhonchi, Wheezing Cardiovascular: Regular Rhythm, No Murmurs, Tachycardia GI/Abdominal Exam: Soft, Non-Tender, No Organomegaly, No Distention Extremities: Non-Tender, Pedal Edema Skin: Warm, Dry, Intact - Problem List Review Problem List Initiated/Reviewed/Updated: Yes - My Orders Last 24 Hours: My Active Orders 09/10/17 08:30 Furosemide [Lasix] 20 mg IVPUSH Q8H 09/10/17 08:57 Convert IV to Saline Lock [OM.PC] Routine 09/10/17 12:28 Morphine 2 mg IVPUSH Q30M PRN 09/10/17 12:29 LORazepam [Ativan] 0.5 - 1 mg IVPUSH Q2H PRN - Plan Plan:: ASSESSMENT AND PLAN Cor pulmonale with acute hypoxic respiratory failure - continued hypoxic respiratory failure, complicated by hypotension. She has requested comfort cares only -IV morphine and lorazepam as needed for comfort Diastolic congestive heart failure -Management as above Left upper lobe pneumonia - mass versus infiltrate noted on chest x-ray and consolidation with air bronchograms noted on CT scan. She has had recent green sputum along with her progressive shortness of breath but no fevers. -Comfort cares only History of tobacco dependence - quit about 4 years ago Palliative care-she does not want to consider further aggressive interventions Maintenance issues - - DVT prophylaxis - JUSTINO stockings - GI prophylaxis - not indicated - Nutrition - clear liquids, advance as tolerated - Newsome catheter - placed in the emergency room for strict intake and output monitoring in the setting of severe respiratory compromise CODE STATUS - DNR/DNI Admission justification - This patient will be admitted for inpatient services and is medically appropriate meeting medical necessity for inpatient admission as outlined in my documentation. I reasonably expect the patient will require inpatient services that span a period time over 2 midnights. I reasonably expect this patient to be discharged or transferred within 96 hours [facility] Disposition - anticipate discharge home after the hospital stay Primary care physician - Dr. Augustine Jensen
--- NOTE | 2017-09-11 15:00 | PCM.DCSUM1 ---
Discharge Summary - Hospital Course Brief History: This patient was a 71-year-old woman who was admitted through the emergency department with hypoxic respiratory failure secondary to COPD exacerbation and diastolic congestive heart failure. - Discharge Data Discharge Date: 09/11/17 Discharge Disposition: 20 Preliminary Cause of *Q: Respiratory Failure Condition: - Discharge Diagnosis/Problem(s) (1) Mass of left lung SNOMED Code(s): 765708144 ICD Code: R91.8 - OTHER NONSPECIFIC ABNORMAL FINDING OF LUNG FIELD Status: Acute Current Visit: Yes (2) Acute kidney failure SNOMED Code(s): 42219768 ICD Code: N17.9 - ACUTE KIDNEY FAILURE, UNSPECIFIED Status: Acute Current Visit: Yes (3) Cor pulmonale SNOMED Code(s): 67178777 ICD Code: I27.81 - COR PULMONALE (CHRONIC) Status: Acute Current Visit: Yes (4) Heart failure, diastolic, with acute decompensation SNOMED Code(s): 555763739 ICD Code: I50.33 - ACUTE ON CHRONIC DIASTOLIC (CONGESTIVE) HEART FAILURE Status: Acute Current Visit: Yes (5) COPD with exacerbation SNOMED Code(s): 968813716212242 ICD Code: J44.1 - CHRONIC OBSTRUCTIVE PULMONARY DISEASE W (ACUTE) EXACERBATION Status: Acute Current Visit: Yes (6) Acute and chronic respiratory failure with hypoxia SNOMED Code(s): 46636423, 681138907 ICD Code: J96.21 - ACUTE AND CHRONIC RESPIRATORY FAILURE WITH HYPOXIA Status: Acute Current Visit: Yes - Patient Summary/Data Consults: Consultations 09/08/17 13:14 Consult to PICC Team [CONS] Routine Comment: Physician Instructions: Hospital Course: Vanessa presented to the emergency room by ambulance with 3-4 days of progressive shortness of breath and cough. She was placed on noninvasive ventilation and suffering from some respiratory distress so history is gathered partially from her and partially from her . She reported onset of symptoms approximately 4 days prior to admission with steady progression over that time including increasing shortness of breath and increasing cough with green sputum. She is now short of breath even at rest and severely so this morning when she called the ambulance. She doesn't think she's been having fevers or chills. She does not report any chest pain or pleuritic chest pain. No recent difficulties with abdominal pain nausea or diarrhea but she does have some mild constipation. No recent antibiotics or steroids. No sick contacts. She has noticed that her lower legs have suddenly become quite swollen over the past 2 days. She does not have orthopnea. Upon arrival to the emergency room she was in respiratory distress and was quickly started on oxygen, which was transitioned to noninvasive ventilation. She has mild leukocytosis. ABGs show a slight alkalosis with very mild elevation of her PCO2. Chest x-ray suggested pulmonary edema and possible upper lobe mass or infiltrate. CT scan of the chest did not reveal evidence for pulmonary embolism but did show left upper lobe pneumonia and moderately severe centrilobular emphysema. She'll be admitted to the intensive care unit for further management. On admission she was placed on antibiotics for possible pneumonia, IV furosemide was given for diuresis and management of congestive heart failure with pulmonary edema. She initially diuresed well and had modest improvement in her shortness of breath but continued to require noninvasive positive pressure ventilation. Further attempts at diuresis were complicated by hypotension and decreased urine output. Fluids were given because of acute kidney injury and hypotension, unfortunately this resulted in increased shortness of breath and hypoxia. Steroids were added to see if this provided any benefit of her respiratory compromise. She was also started on IV norepinephrine to support her blood pressure, hopefully to improve renal function and to be able to use diuretic therapy to improve her pulmonary edema. All of this was unsuccessful in providing meaningful improvement. Echocardiogram was obtained, formal report pending, preliminary report showed evidence of cor pulmonale, preserved left ventricular systolic function, and evidence of significant diastolic dysfunction. Situation was reviewed with the patient and her and she decided to proceed with comfort cares only given lack of significant improvement with attempted interventions. She confirmed her wish to be DNR/DNI and did not want to consider transfer for further evaluation. Morphine and lorazepam were used as needed for comfort. The mid afternoon of September 11 she and no attempts were made at resuscitation as per her previously expressed wishes. Cause of was felt to be secondary to hypoxic respiratory failure with underlying severe COPD and diastolic congestive heart failure. There was a component of acute kidney injury. Question of underlying pulmonary infection as well as possible pulmonary mass representing malignancy. - Discharge Plan Home Medications: Home Meds Levothyroxine 75 mcg PO DAILY 12/06/13 [History] atorvaSTATin [Lipitor] 20 mg PO BEDTIME 12/06/13 [History] Aspirin [Adult Low Dose Aspirin EC] 81 mg PO DAILY 09/06/17 [History] Budesonide [Pulmicort] 0.5 mg IH BID 09/06/17 [History] Furosemide 1 tab PO DAILY 09/06/17 [History] Ipratropium/Albuterol Sulfate [Iprat-Albut 0.5-3(2.5) mg/3 ml] 3 ml IH QID 09/06 [History] Metoprolol Tartrate 12.5 mg PO BID 09/06/17 [History] Potassium Chloride 20 meq PO DAILY 09/06/17 [History] Referrals: PCP,None [Primary Care Provider] - - Discharge Summary/Plan Comment DC Time >30 min.: No - Patient Data Vitals - Most Recent: Last Vital Signs Temp 98.6 F 09/11/17 12:00 Pulse 104 H 09/11/17 13:00 Resp 18 09/11/17 13:00 BP 121/74 09/11/17 13:00 Pulse Ox 84 L 09/11/17 13:00 Weight - Most Recent: 120 lb 6.417 oz I&O - Last 24 hours: Intake & Output 09/10/17 09/11/17 09/11/17 22:59 06:59 14:59 Intake Total 930 260 Output Total 20 75 Balance 910 185 Lab Results - Last 24 hrs: Laboratory Results - last 24 hr 09/11/17 09/11/17 Range/Units 05:00 05:00 WBC 15.3 H (4.5-11.0) K/uL RBC 4.09 (3.30-5.50) M/uL Hgb 12.7 (12.0-15.0) g/dL Hct 40.9 (36.0-48.0) % MCV 100 H (80-98) fL MCH 31 (27-31) pg MCHC 31 L (32-36) % Plt Count 219 (150-400) K/uL Neut % (Auto) 93 H (36-66) % Lymph % (Auto) 2 L (24-44) % [place] % (Auto) 5 (2-6) % Eos % (Auto) 0 L (2-4) % Baso % (Auto) 0 (0-1) % Sodium 135 L (140-148) mmol/L Potassium 5.3 H (3.6-5.2) mmol/L Chloride 99 L (100-108) mmol/L Carbon Dioxide 32 (21-32) mmol/L Anion Gap 9.3 (5.0-14.0) mmol/L BUN 30 H D (7-18) mg/dL Creatinine 1.2 H D (0.6-1.0) mg/dL Est Cr Clr Drug Dosing 33.10 mL/min Estimated GFR (MDRD) 44 L (>60) Glucose 185 H (74-106) mg/dL Calcium 8.2 L (8.5-10.1) mg/dL Med Orders - Current: Current Medications Acetaminophen (Tylenol) 650 mg PO Q4H PRN PRN Reason: Pain (Mild 1-3)/fever Last Admin: 09/08/17 06:40 Dose: 650 mg Albuterol (Proventil Neb Soln) 2.5 mg NEB Q4H PRN PRN Reason: Shortness Of Breath/wheezing Last Admin: 09/11/17 01:44 Dose: 2.5 mg Albuterol/Ipratropium (Duoneb 3.0-0.5 Mg/3 Ml) 3 ml NEB QIDRT [facility] Last Admin: 09/11/17 10:54 Dose: 3 ml Aspirin (Halfprin) 81 mg PO DAILY [facility] Last Admin: 09/11/17 08:41 Dose: 81 mg Atorvastatin Calcium (Lipitor) 20 mg PO BEDTIME [facility] Last Admin: 09/10/17 20:04 Dose: Not Given Budesonide (Pulmicort) 0.5 mg INH BIDRT [facility] Last Admin: 09/11/17 07:05 Dose: 0.5 mg Heparin Sodium (Porcine) (Heparin Lock Flush 100 Units/Ml) 500 units IVPUSH ASDIRECTED PRN PRN Reason: CENTRAL LINE MAINT[place] Last Admin: 09/11/17 12:12 Dose: 500 units Levothyroxine Sodium (Levothyroxine) 75 mcg PO ACBREAKFAST [facility] Last Admin: 09/11/17 07:33 Dose: 75 mcg Lorazepam (Ativan) 0.5 - 1 mg IVPUSH Q2H PRN PRN Reason: Anxiety Last Admin: 09/11/17 09:15 Dose: 1 mg Magnesium Hydroxide (Milk Of Magnesia) 30 ml PO Q12H PRN PRN Reason: Constipation Magnesium Oxide (Magnesium Oxide) 400 mg PO BID [facility] Last Admin: 09/11/17 08:41 Dose: 400 mg Morphine Sulfate (Morphine) 2 mg IVPUSH Q30M PRN PRN Reason: Dyspnea Last Admin: 09/11/17 07:34 Dose: 2 mg Ondansetron HCl (Zofran Odt) 4 mg PO Q6H PRN PRN Reason: Nausea able to take PO Ondansetron HCl (Zofran) 4 mg IV Q6H PRN PRN Reason: Nausea/Vomiting Polyethylene Glycol (Miralax) 17 gm PO DAILY PRN PRN Reason: Constipation Senna/Docusate Sodium (Senna Plus) 1 tab PO BID PRN PRN Reason: Constipation Sodium Chloride (Saline Flush) 10 ml FLUSH ASDIRECTED PRN PRN Reason: Keep Vein Open Last Admin: 09/06/17 12:11 Dose: 10 ml Sodium Chloride ([place] Nasal [place]) 1 ml ROBYN Q2H PRN PRN Reason: Dryness Discontinued Medications Furosemide (Lasix) 80 mg IVPUSH ONETIME ONE Stop: 09/06/17 11:56 Last Admin: 09/06/17 12:06 Dose: 80 mg Furosemide (Lasix) 20 mg IVPUSH NOW ONE Stop: 09/07/17 10:46 Last Admin: 09/07/17 11:06 Dose: 20 mg Furosemide (Lasix) 20 mg IV ONETIME ONE Stop: 09/09/17 10:16 Last Admin: 09/09/17 10:24 Dose: 20 mg Furosemide (Lasix) 20 mg IVPUSH Q8H [facility] Last Admin: 09/11/17 08:40 Dose: 20 mg Sodium Chloride (Normal Saline) 100 mls @ 3 mls/sec IV ASDIRECTED [facility] Last Admin: 09/06/17 13:35 Dose: 3 mls/sec Ceftriaxone Sodium 2 gm/ (Sodium Chloride) 50 mls @ 100 mls/hr IV Q24H [facility] Last Admin: 09/10/17 14:20 Dose: 100 mls/hr Levofloxacin/Dextrose 750 mg/ (Premix) 150 mls @ 100 mls/hr IV Q24H [facility] Last Admin: 09/10/17 16:00 Dose: 100 mls/hr Sodium Chloride (Normal Saline) 500 mls @ 500 mls/hr IV .BOLUS ONE Stop: 09/06/17 23:11 Last Admin: 09/06/17 22:19 Dose: 500 mls/hr Sodium Chloride (Normal Saline) 250 mls @ 250 mls/hr IV ASDIRECTED [facility] Sodium Chloride (Normal Saline) 500 mls @ 500 mls/hr IV .BOLUS ONE Stop: 09/07/17 20:46 Last Admin: 09/07/17 20:04 Dose: 500 mls/hr Sodium Chloride (Normal Saline) 1,000 mls @ 250 mls/hr IV .BOLUS ONE Stop: 09/08/17 01:09 Last Admin: 09/08/17 06:41 Dose: 125 mls/hr Magnesium Sulfate 2 gm/ Premix 50 mls @ 25 mls/hr IV ONETIME ONE Stop: 09/08/17 11:59 Last Admin: 09/08/17 09:44 Dose: 25 mls/hr Sodium Chloride (Normal Saline) 500 mls @ 250 mls/hr IV ASDIRECTED [facility] Last Infusion: 09/08/17 12:45 Dose: Infused Norepinephrine Bitartrate 4 mg (/ Dextrose/Water) 250 mls @ 7.5 mls/hr IV TITRATE [facility]; Protocol Last Titration: 09/11/17 10:55 Dose: 2 mcg/min, 7.5 mls/hr Sodium Chloride (Normal Saline) 1,000 mls @ 125 mls/hr IV ASDIRECTED [facility] Last Admin: 09/09/17 06:20 Dose: 125 mls/hr Sodium Chloride (Normal Saline) 1,000 mls @ 75 mls/hr IV ASDIRECTED [facility] Last Admin: 09/09/17 18:48 Dose: 75 mls/hr Iopamidol (Isovue-370 (76%)) 100 ml IV . DIRECTED [facility] Last Admin: 09/06/17 13:35 Dose: 100 ml Lorazepam (Ativan) 0.5 - 1 mg IVPUSH Q4H PRN PRN Reason: Anxiety Last Admin: 09/10/17 08:12 Dose: 1 mg Methylprednisolone Sodium Succinate (Solu-Medrol) 40 mg IVPUSH Q6H [facility] Last Admin: 09/11/17 05:02 Dose: 40 mg Metoprolol Tartrate (Lopressor) 12.5 mg PO BID [facility] Last Admin: 09/08/17 08:49 Dose: 12.5 mg Morphine Sulfate (Morphine) 2 mg IVPUSH Q2H PRN PRN Reason: Pain (severe 7-10) Last Admin: 09/10/17 18:56 Dose: 2 mg Comments:: Patient
[2017-09-11 16:33] VITALS: BP 84/51
== END 2017-09-11 19:49 | disposition expired | DRG 190 ==
LOC: JP.ED 11:37 → JP.ICU 12:33
PROVIDERS: ADMIT Internal Medicine; ATTEND Hospitalist
PROC: 02HV33Z Insertion of Infusion Device into Superior Vena Cava, Percutaneous Approach (ICD-10-PCS; principal; 2017-09-08)
PROC: B548ZZA Ultrasonography of Superior Vena Cava, Guidance (ICD-10-PCS; 2017-09-08)
DX: J44.0 Chronic obstructive pulmonary disease with (acute) lower respiratory infection (principal); J18.9 Pneumonia, unspecified organism; J18.1 Lobar pneumonia, unspecified organism; I50.33 Acute on chronic diastolic (congestive) heart failure; R91.1 Solitary pulmonary nodule; J96.21 Acute and chronic respiratory failure with hypoxia; J96.01 Acute respiratory failure with hypoxia; E87.2 Acidosis; N17.9 Acute kidney failure, unspecified; C34.92 Malignant neoplasm of unspecified part of left bronchus or lung; Z51.5 Encounter for palliative care; R06.02 Shortness of breath; R60.9 Edema, unspecified; R06.03 Acute respiratory distress; Z66 Do not resuscitate; J44.1 Chronic obstructive pulmonary disease with (acute) exacerbation; R91.8 Other nonspecific abnormal finding of lung field; I27.81 Cor pulmonale (chronic); Z87.891 Personal history of nicotine dependence; E05.90 Thyrotoxicosis, unspecified without thyrotoxic crisis or storm; I95.9 Hypotension, unspecified; H54.7 Unspecified visual loss; Z79.82 Long term (current) use of aspirin; K59.00 Constipation, unspecified; Z79.899 Other long term (current) drug therapy; Z99.89 Dependence on other enabling machines and devices
CPT/HCPCS: 36600; 71045 ×2; 80048; 82803; 85025; 96374; 99284; 99285; J1940; J7050; 36415; 51702; 71275; 83735; 85027; 86140; 87070; 87205; 93306; 94640; 94660; A9270-GY; C1713; J0696; J1642; J1956; J2060; J2270; J2920; J3475; J7030; J7040; J7060; J7620; Q9967